=== PATIENT | female | born 1985 | race Caucasian/White ===

== ENCOUNTER 2018-04-22 23:43 | Emergency (ER) | payer BC, OTHER ==
[2018-04-23 00:50] LABS: Absolute Lymphocytes (CBC) 2.6 K/uL (0.7-4.9); Absolute Monocytes 0.6 K/uL (0.1-1.3); Absolute Neutrophil 3.9 K/uL (1.8-8.0); Basophils % 0.6 % (0-1.3); Eosinophils % 2.6 % (0-4.4); Lymphocytes % 35.3 % (15.3-44.8); MPV 8.8 fL (7.6-11.3); Monocytes % 8.1 % (3.3-12.3); RBC Red Blood Cell Count 4.28 M/uL (3.86-4.86)
[2018-04-23 00:53] LABS: Specific Gravity >= 1.030 (1.005-1.030); Urine Appearance TURBID; Urine Bilirubin NEGATIVE (NEG); Urine Blood 1+ (NEG); Urine Color YELLOW; Urine Glucose NEGATIVE (NEG); Urine Protein 1+ (NEG); Urine Specific Gravity >=1.030 (1.005-1.030); Urine pH 5.5 (5.0-7.0)
[2018-04-23] MEDS ORDERED: NA CHLORIDE 0.9% 1,000 ML ONE (00:54)
[2018-04-23] MEDS ORDERED: PROMETHAZINE 25 MG/ML VIAL ONE (00:54)
[2018-04-23 01:01] LABS: Calcium Oxalate Crystals- Ur MODERATE (NONE SEEN); Urine Bacteria >50 /HPF (<20); Urine Culture Reflex Order NOT NEEDED; Urine Mucus HEAVY /HPF (NONE SEEN)
[2018-04-23 01:02] LABS: Urine Trichomonas PRESENT (NONE SEEN)
[2018-04-23 01:07] LABS: ALT/SGPT 19 U/L (12-78); AST/SGOT 10 U/L (15-37); Albumin 3.3 g/dL (3.4-5.0); Alkaline Phosphatase 66 U/L (45-117); BUN Blood Urea Nitrogen 12 mg/dL (7-18); Bicarbonate 26 mmol/L (21-32); Bilirubin Direct < 0.1 mg/dL (0-0.2); Bilirubin Total 0.2 mg/dL (0.2-1.0); Glucose Level 113 mg/dL (74-106); Lipase 143 U/L (73-393); Potassium 3.8 mmol/L (3.5-5.1); Protein, Total 6.7 g/dL (6.4-8.2); Sodium Level 143 mmol/L (136-145)
[2018-04-23] MEDS ORDERED: metroNIDAZOLE 500 MG TABLET ONE (01:22)
--- NOTE | 2018-04-23 02:50 | EDPHYS ---
Physician Documentation [facility] Name: Lissa Zavala Age: 32 yrs Sex: Female : 1985 Arrival Date: 04/22/2018 Time: 23:45 Bed 13 Private MD: ED Physician Ryder Cali HPI: 04/23 00:30 This 32 yrs old Female presents to ER via Ambulatory with complaints of snw Vomiting. 00:30 The patient presents to the emergency department with nausea, vomiting, abdominal pain. snw Onset: The symptoms/episode began/occurred suddenly, 4 day(s) ago, and became persistent. Possible causes: unknown. The symptoms are aggravated by nothing. Associated signs and symptoms: Pertinent positives: nausea, vomiting. Severity of symptoms: At their worst the symptoms were moderate. The patient has experienced similar episodes in the past. The patient has not recently seen a physician, and does not have an established primary care provider. FACETOR: 04/22 23:51 LMP 03/30/2018 jb4 Historical: - Allergies: 23:51 No Known Allergies; jb4 - Home Meds: 23:51 None [Active]; jb4 - PMHx: 23:51 hietal hernia; hepatic cyst; Kidney stones; jb4 - PSHx: 23:51 ; Cholecystectomy; jb4 - Immunization history:: Adult Immunizations unknown, Flu vaccine is not up to date. - Social history:: Smoking status: Patient/guardian denies using tobacco, Patient/guardian denies using alcohol. - Ebola Screening: : No symptoms or risks identified at this time. ROS: 04/23 00:29 Constitutional: Negative for fever, chills, and weight loss, Eyes: Negative for injury, snw pain, redness, and discharge, ENT: Negative for injury, pain, and discharge, Neck: Negative for injury, pain, and swelling, Cardiovascular: Negative for chest pain, palpitations, and edema, Respiratory: Negative for shortness of breath, cough, wheezing, and pleuritic chest pain, Back: Negative for injury and pain, : Negative for injury, bleeding, discharge, and swelling, MS/Extremity: Negative for injury and deformity, Skin: Negative for injury, rash, and discoloration, Neuro: Negative for headache, weakness, numbness, tingling, and seizure. Abdomen/GI: Positive for abdominal pain, nausea, vomiting, of the posterior aspect of left lateral abdomen, left upper quadrant and left lower quadrant. Exam: 00:29 Constitutional: This is a well developed, well nourished patient who is awake, alert, snw and in no acute distress. Head/Face: Normocephalic, atraumatic. Eyes: Pupils equal round and reactive to light, extra-ocular motions intact. Lids and lashes normal. Conjunctiva and sclera are non-icteric and not injected. Cornea within normal limits. Periorbital areas with no swelling, redness, or edema. ENT: Nares patent. No nasal discharge, no septal abnormalities noted. Tympanic membranes are normal and external auditory canals are clear. Oropharynx with no redness, swelling, or masses, exudates, or evidence of obstruction, uvula midline. Mucous membranes moist. Neck: Trachea midline, no thyromegaly or masses palpated, and no cervical lymphadenopathy. Supple, full range of motion without nuchal rigidity, or vertebral point tenderness. No Meningismus. Chest/axilla: Normal chest wall appearance and motion. Nontender with no deformity. No lesions are appreciated. Cardiovascular: Regular rate and rhythm with a normal S1 and S2. No gallops, murmurs, or rubs. Normal PMI, no JVD. No pulse deficits. Respiratory: Lungs have equal breath sounds bilaterally, clear to auscultation and percussion. No rales, rhonchi or wheezes noted. No increased work of breathing, no retractions or nasal flaring. Abdomen/GI: Soft, non-tender, with normal bowel sounds. No distension or tympany. No guarding or rebound. No evidence of tenderness throughout. Back: No spinal tenderness. No costovertebral tenderness. Full range of motion. Skin: Warm, dry with normal turgor. Normal color with no rashes, no lesions, and no evidence of cellulitis. MS/ Extremity: Pulses equal, no cyanosis. Neurovascular intact. Full, normal range of motion. Neuro: Awake and alert, GCS 15, oriented to person, place, time, and situation. Cranial nerves II-XII grossly intact. Motor strength 5/5 in all extremities. Sensory grossly intact. Cerebellar exam normal. Normal gait. Psych: Awake, alert, with orientation to person, place and time. Behavior, mood, and affect are within normal limits. Vital Signs: 04/22 23:51 BP 114 / 79; Pulse 79; Resp 18; Temp 98.0(O); Pulse Ox 100% on R/A; Weight 81.65 kg jb4 (R); Height 5 ft. 7 in. (170.18 cm) (R); Pain 8/10; 04/23 00:45 BP 109 / 74; Pulse 63; Resp 16; Pulse Ox 100% on R/A; jb4 02:00 Pulse 54; Resp 16; Pulse Ox 100% ; jb4 04/22 23:51 Body Mass Index 28.19 (81.65 kg, 170.18 cm) jb4 MDM: 04/22 23:55 Patient medically screened. snw 04/23 02:51 Data reviewed: vital signs, nurses notes. Data interpreted: Pulse oximetry: on room air snw is 100 %. Interpretation: normal. Counseling: I had a detailed discussion with the patient and/or guardian regarding: the historical points, exam findings, and any diagnostic results supporting the discharge/admit diagnosis, lab results, radiology results, the need for outpatient follow up, to return to the emergency department if symptoms worsen or persist or if there are any questions or concerns that arise at home. Special discussion: Based on the patient's Hx, exam, and Dx evaluation, there is no indication for emergent surgery or inpatient Tx. It is understood by the patient/guardian that if the Sx's persist or worsen they need to return immediately for re-evaluation. Based on the history and exam findings, there is no indication for further emergent testing or inpatient evaluation. I discussed with the patient/guardian the need to see the OB Gyne specialist for further evaluation of the symptoms. I discussed with the patient/guardian the need to see the primary care provider for further evaluation of the symptoms. 04/23 00:20 Order name: Urine Culture snw 04/23 00:20 Order name: Basic Metabolic Panel; Complete Time: 01:07 snw 04/23 00:20 Order name: CBC with Diff; Complete Time: 00:59 snw 04/23 00:20 Order name: Hepatic Function; Complete Time: 01: snw 04/23 00:20 Order name: Lipase; Complete Time: 01: snw 04/23 00:20 Order name: Urine Test (obtain specimen); Complete Time: 01: [facility] 04/23 00:20 Order name: Stone Protocol CT [facility] 04/23 00:48 Order name: Test, Urine; Complete Time: 01: [facility] 04/23 00:48 Order name: Urinalysis W/Microscopic; Complete Time: 01: [facility] 04/23 00:20 Order name: Urine Dipstick-Ancillary (obtain specimen); Complete Time: 01: [facility] 04/23 00:20 Order name: IV Saline Lock; Complete Time: : [facility] 04/23 00:20 Order name: Labs collected and sent; Complete Time: : sn Administered Medications: 00:45 Drug: NS 0.9% 1000 ml Route: IV; Rate: 1 bolus; Site: right antecubital; jb4 03:10 Follow up: Response: No adverse reaction; IV Status: Completed infusion jb4 00:47 Drug: Phenergan 12.5 mg Route: IVP; Site: right antecubital; jb4 01:30 Follow up: Response: No adverse reaction; Nausea is decreased jb4 01:12 Drug: Flagyl 2 grams Route: PO; jb4 03:23 Follow up: Response: No adverse reaction jb4 Disposition: 06:39 Co-signature as Attending Physician, Ryder Cali MD. rn Disposition: 04/23/18 02:50 Discharged to Home. Impression: Trichomonal cystitis and urethritis, Unspecified abdominal pain, Calculus of kidney. - Condition is Stable. - Discharge Instructions: Abdominal Pain, Adult, Kidney Stones, Sexually Transmitted Disease, Urethritis, Adult. - Prescriptions for Bentyl 20 mg Oral Tablet - take 1 tablet by ORAL route every 6 hours As needed; 20 tablet. Zofran 4 mg Oral Tablet - take 1 tablet by ORAL route every 12 hours As needed; 20 tablet. - Medication Reconciliation Form, Thank You Letter, Antibiotic Education, Prescription Opioid Use form. - Follow up: Private Physician; When: 1 - 2 days; Reason: Recheck today's complaints, Continuance of care, Re-evaluation by your physician. Follow up: Emergency Department; When: As needed; Reason: Worsening of condition. Signatures: Dispatcher [facility] Kacie Miguel, SELLING MANAGER-C SELLING MANAGER-Csnw Ryder Cali MD MD rn Bryson, James, RN RN jb4 Corrections: (The following items were deleted from the chart) 00:48 00:21 UA MICROSCOPIC+U.LAB.BRZ ordered. [facility] EDMS 02:39 00:21 TYPE AND SCREEN+BB.LAB.BRZ ordered. [facility] EDMS 03:32 02:50 04/23/2018 02:50 Discharged to Home. Impression: Trichomonal cystitis and jb4 urethritis; Unspecified abdominal pain; Calculus of kidney. Condition is Stable. Forms are Medication Reconciliation Form, Thank You Letter, Antibiotic Education, Prescription Opioid Use. Follow up: Private Physician; When: 1 - 2 days; Reason: Recheck today's complaints, Continuance of care, Re-evaluation by your physician. Follow up: Emergency Department; When: As needed; Reason: Worsening of condition. snw
--- NOTE | 2018-04-23 02:50 | ER ---
Nurse's Notes [facility] Name: Lissa Zavala Age: 32 yrs Sex: Female : 1985 Arrival Date: 04/22/2018 Time: 23:45 Bed 13 Private MD: Diagnosis: Trichomonal cystitis and urethritis;Unspecified abdominal pain;Calculus of kidney Presentation: 04/22 23:51 Presenting complaint: Patient states: I have had abdominal pain that radiates to my jb4 back for the past 4 days and vomiting. 23:51 Transition of care: patient was not received from another setting of care. Onset of jb4 symptoms was April 19, 2018. Risk Assessment: Do you want to hurt yourself or someone else? Patient reports no desire to harm self or others. Initial Sepsis Screen: Does the patient meet any 2 criteria? No. Patient's initial sepsis screen is negative. Does the patient have a suspected source of infection? No. Patient's initial sepsis screen is negative. Care prior to arrival: None. 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 - Social history:: Smoking status: Patient/guardian denies using tobacco, Patient/guardian denies using alcohol. - Ebola Screening: : No symptoms or risks identified at this time. Screenin:51 Abuse screen: Denies threats or abuse. Nutritional screening: No deficits noted. jb4 Tuberculosis screening: No symptoms or risk factors identified. Fall Risk None identified. Assessment: 23:51 General: Appears in no apparent distress. uncomfortable, Behavior is calm, cooperative, jb4 appropriate for age. Pain: Complains of pain in abdomen Pain radiates to back Pain currently is 8 out of 10 on a pain scale. Quality of pain is described as stabbing, Pain began 4 days ago. Neuro: Level of Consciousness is awake, alert, obeys commands, Oriented to person, place, time, situation. Cardiovascular: Patient's skin is warm and dry. Respiratory: Airway is patent Respiratory effort is even, unlabored, Respiratory pattern is regular, symmetrical. GI: Abdomen is flat, non-distended, Bowel sounds present X 4 quads. Abd is soft X 4 quads Abd is non tender in right upper quadrant and right lower quadrant Abdomen is tender to palpation in left upper quadrant and left lower quadrant Reports lower abdominal pain, upper abdominal pain, diarrhea, nausea. : No signs and/or symptoms were reported regarding the genitourinary system. EENT: No signs and/or symptoms were reported regarding the EENT system. Derm: Skin is intact, Skin is pink, warm \T\ dry. Musculoskeletal: Circulation, motion, and sensation intact. 04/23 00:57 Reassessment: Patient appears in no apparent distress at this time. Patient and/or jb4 family updated on plan of care and expected duration. Pain level reassessed. Patient is alert, oriented x 3, equal unlabored respirations, skin warm/dry/pink. 02:00 Reassessment: Patient appears in no apparent distress at this time. Patient and/or jb4 family updated on plan of care and expected duration. Pain level reassessed. Patient is alert, oriented x 3, equal unlabored respirations, skin warm/dry/pink. Vital Signs: 04/22 23:51 BP 114 / 79; Pulse 79; Resp 18; Temp 98.0(O); Pulse Ox 100% on R/A; Weight 81.65 kg jb4 (R); Height 5 ft. 7 in. (170.18 cm) (R); Pain 8/10; 04/23 00:45 BP 109 / 74; Pulse 63; Resp 16; Pulse Ox 100% on R/A; jb4 02:00 Pulse 54; Resp 16; Pulse Ox 100% ; jb4 04/22 23:51 Body Mass Index 28.19 (81.65 kg, 170.18 cm) banner ED Course: 04/22 23:45 Patient arrived in ED. es 23:51 Arm band placed on right wrist. jb4 23:51 Patient has correct armband on for positive identification. Placed in gown. Bed in low jb4 position. Call light in reach. Side rails up X 1. Pulse ox on. NIBP on. 23:55 Kacie Miguel FNP-C is PHCP. snw 23:55 Ryder Cali MD is Attending Physician. snw 04/23 00:15 Vince Vazquez, RN is Primary Nurse. jb4 00:16 Triage completed. jb4 00:30 Initial lab(s) drawn, by me, sent to lab. Inserted saline lock: 20 gauge in right jb4 antecubital area, using aseptic technique. Blood collected. 01:[address] via wheelchair. kw1 01:30 CT completed. Patient tolerated procedure well. Patient moved back from CT. kw1 01:[address] In Process Unspecified. EDMS 03:25 No provider procedures requiring assistance completed. IV discontinued, intact, jb4 bleeding controlled. Administered Medications: 00:45 Drug: NS 0.9% 1000 ml Route: IV; Rate: 1 bolus; Site: right antecubital; jb4 03:10 Follow up: Response: No adverse reaction; IV Status: Completed infusion jb4 00:47 Drug: Phenergan 12.5 mg Route: IVP; Site: right antecubital; jb4 01:30 Follow up: Response: No adverse reaction; Nausea is decreased jb4 01:12 Drug: Flagyl 2 grams Route: PO; jb4 03:23 Follow up: Response: No adverse reaction jb4 Outcome: 02:50 Discharge ordered by . snw 03:25 Discharged to home ambulatory, with family. jb4 03:25 Condition: stable 03:25 Discharge instructions given to patient, family, Instructed on discharge instructions, follow up and referral plans. medication usage, Demonstrated understanding of instructions, follow-up care, medications, Prescriptions given X 2. 03:32 Patient left the ED. jb4 Signatures: Dispatcher [employer] EDAR Kacie Miguel FNP-C ATHLETE MANAGER-Csnw Charlene Hunter James, RN RN jb4 Gertrudis Donovan kw1
--- NOTE | 2018-04-23 11:55 | RAD REPORT ---
EXAM DESCRIPTION: CT abdomen pelvis without IV contrast CLINICAL HISTORY: 32-year-old female with abdominal pain that radiates the patient's back x4 days, v omiting, history of hiatal hernia TECHNIQUE: Axial CT imaging of the abdomen and pelvis was performed. Sagittal and coronal reconstr ucted images were then performed. The CT study is performed according to ALARA (as low as reasonably achievable) or ALARA/IMAGE GENTLY, with automatic adjustment of mA and/or kV according to patient amaury goldstein. Performed on: 04/23/2018 at 1:27 AM Comparison: None. FINDINGS: Lung bases: The lung bases are clear. There is a calcified granuloma in the posterior medi al right lower lobe. Liver: The liver is normal in size and configuration. No focal hepatic abnormalities are appreciated on this unenhanced scan. Liver attenuation is within normal limits. Spleen: The spleen is normal is size, configuration and attenuation. No focal splenic abnormalities a re appreciated on this unenhanced scan. Gallbladder and bile duct: The gallbladder is surgically absent. There is no biliary ductal dilatat ion. Pancreas: The pancreas is grossly normal in size and configuration. Adrenal Glands: The adrenal glands are normal in size and configuration. Kidneys: The kidneys are normal in size and configuration. There is no evidence of hydronephrosis. Th ere is a 0.7 x 0.5 x 0.9 cm nonobstructing calcification in the midpole of the left kidney. No focal renal abnormalities are identified. Stomach: The stomach is grossly normal. There is no definite hiatal hernia. Bowel: The bowel gas pattern is non specific and non obstructive. There is a small fat-containing frank tral umbilical hernia. Appendix: The appendix is normal. Free air: There is no evidence of free air. Free fluid: There is no evidence of free fluid. Vasculature: The aorta is normal in caliber and contour. The inferior vena cava is grossly unremarkab le. Lymphadenopathy: No pathologic lymphadenopathy is identified. Bladder: The bladder is incompletely distended. Reproductive: The uterus is grossly within normal limits. Bones: No acute osseous abnormalities are identified. Soft tissues: No focal soft tissue abnormalities are identified. There are multiple calcified pelvic phleboliths. IMPRESSION: 1. No evidence of acute intra-abdominal or intrapelvic pathology. 2. There is a 0.7 x 0.5 x 0.9 cm nonobstructing calcification in the midpole of the left kidney. 3. Right lower lobe calcified granuloma. 4. Small fat-containing ventral umbilical hernia. 5. Remote cholecystectomy. Electronically signed by: Niru Mccoy DO 04/23/2018 2:40 AM FLUTE TEACHER Due to temporary technical issues with the PACS/Fluency reporting system, reports are being signed by the in house radiologist as a courtesy to ensure prompt reporting. The interpreting radiologist is f ully responsible for the content of the report.
== END 2018-04-23 03:32 | disposition home or self-care (01) ==
LOC: ER 23:43
DX: N20.0 Calculus of kidney (principal); A59.03 Trichomonal cystitis and urethritis; Z87.442 Personal history of urinary calculi
CPT/HCPCS: 36415; 74176; 76377; 80048; 80076; 81001; 81025; 83690; 85025; 87086; 87088; 96361; 96374; 99284; J2550; J7030

== ENCOUNTER 2018-11-23 19:17 | Emergency (ER) | payer SELFPAY ==
[2018-11-23 19:55] LABS: Urine Blood 1+ (NEG); Urine Glucose NEGATIVE (NEG); Urine Protein 2+ (NEG)
[2018-11-23 20:05] LABS: Urine Bacteria >50 /HPF (<20); Urine Culture Reflex Order REFLEXED; Urine RBC <5 /HPF (NONE SEEN)
[2018-11-23 20:13] LABS: Absolute Lymphocytes (CBC) 1.9 K/uL (0.7-4.9); Basophils % 0.6 % (0-1.3); Hematocrit 32.3 % (36.0-45.0); Lymphocytes % 17.3 % (15.3-44.8); MPV 8.1 fL (7.6-11.3)
[2018-11-23] MEDS ORDERED: KETOROLAC 30 MG/ML INJ ONE (20:13)
[2018-11-23] MEDS ORDERED: NA CHLORIDE 0.9% 1,000 ML ONE (20:13)
[2018-11-23 20:28] LABS: Potassium 3.2 mmol/L (3.5-5.1)
--- NOTE | 2018-11-23 20:31 | RAD REPORT ---
EXAM DESCRIPTION: CT - Abdomen Pelvis Wo Contrast - 11/23/2018 8:09 pm CLINICAL HISTORY: ABD PAIN COMPARISON: Stone Protocol dated 04/23/2018 TECHNIQUE: Axial [address] imaging of the abdomen and pelvis was performed without IV contrast. No IV contrast was given because of allergy, abnormal renal function, patient refusal or physician re quest. No oral contrast given. All CT scans are performed using dose optimization technique as appropriate and may include automated exposure control or mA/KV adjustment according to patient size. FINDINGS: No suspicious findings in the lung bases. The liver, spleen and pancreas show no suspicious findings on non-contrast imaging. Cholecystectomy c lips are present. No biliary tree dilatation. No hydronephrosis or obstructing calculi. Nonobstructing calculus 7 mm in size in the mid left kidney . No significant adrenal finding. Isodense renal masses and pyelonephritis cannot be excluded in the absence of IV contrast. Urinary bladder is contracted accentuating wall thickness. Uterus and ovaries show no suspicious findings. No dilated bowel loops or bowel wall thickening. No appendicitis. Hyperdense material in the colon pr obably medication. No free air, free fluid or inflammatory stranding. No hernia, mass or bulky lympha denopathy. Numerous phleboliths are present in the pelvis. No suspicious bony findings. IMPRESSION: Non-contrast enhanced CT abdomen and pelvis imaging show no significant or suspicious fi nding. Isodense masses, pyelonephritis and cystitis are not excluded on noncontrast imaging. Overall assessm ent is limited in the absence of oral and IV contrast.
--- NOTE | 2018-11-23 21:11 | ER ---
Nurse's Notes [facility] Name: Lissa Zavala Age: 33 yrs Sex: Female : 1985 Arrival Date: 11/23/2018 Time: 19:22 Bed 7 Private MD: Diagnosis: Urinary tract infection, site not specified Presentation: 11/23 19:36 Presenting complaint: Patient states: General abdominal pain, headache, nausea x 2 lp1 days; States last BM 2 days ago. Transition of care: patient was not received from another setting of care. Onset of symptoms was November 21, 2018. Risk Assessment: Do you want to hurt yourself or someone else? Patient reports no desire to harm self or others. Initial Sepsis Screen: Does the patient meet any 2 criteria? No. Patient's initial sepsis screen is negative. Does the patient have a suspected source of infection? No. Patient's initial sepsis screen is negative. Care prior to arrival: None. 19:36 Method Of Arrival: Ambulatory lp1 19:36 Acuity: ROSLYN 3 lp1 MARINE SUPERINTENDENT: 19:37 LMP 11/16/2018 lp1 Historical: - Allergies: 19:39 No Known Allergies; lp1 - Home Meds: 19:39 None [Active]; lp1 - PMHx: 19:39 hepatic cyst; hietal hernia; Kidney stones; lp1 - PSHx: 19:39 Cholecystectomy; lp1 - Immunization history:: Adult Immunizations up to date. - Social history:: Smoking status: Patient uses tobacco products, smokes one pack cigarettes per day. - Ebola Screening: : No symptoms or risks identified at this time. Screenin:39 Abuse screen: Denies threats or abuse. Denies injuries from another. Nutritional lp1 screening: No deficits noted. Tuberculosis screening: No symptoms or risk factors identified. Fall Risk None identified. Assessment: 19:39 General: Appears in no apparent distress. Behavior is appropriate for age. Pain: lp1 Complains of pain in abdomen Pain currently is 7 out of 10 on a pain scale. Quality of pain is described as sharp. Neuro: Level of Consciousness is awake, alert, obeys commands, Oriented to person, place, time, situation. Cardiovascular: Patient's skin is warm and dry. Respiratory: Respiratory effort is even, unlabored. GI: Abdomen is non-distended, Bowel sounds present X 4 quads. Abdomen is tender to palpation X 4 quads. Reports constipation, nausea. : No signs and/or symptoms were reported regarding the genitourinary system. EENT: No signs and/or symptoms were reported regarding the EENT system. Derm: Skin is pink, warm \T\ dry. Musculoskeletal: No deficits noted. 20:17 Reassessment: Returned from CT at this time. lp1 21:45 Reassessment: Patient and/or family updated on plan of care and expected duration. Pain ea level reassessed. Patient is alert, oriented x 3, equal unlabored respirations, skin warm/dry/pink. Discharge instruction given to patient, verbalized the understanding of instruction. Pt left ED ambulatory accompanied by significant other. Vital Signs: 19:37 BP 119 / 68; Pulse 99; Resp 16; Temp 99.3(O); Pulse Ox 99% on R/A; Weight 81.65 kg; lp1 Height 5 ft. 7 in. (170.18 cm); Pain 7/10; 21:21 BP 113 / 71; Pulse 80; Resp 16; Pulse Ox 100% on R/A; Pain 2/10; lp1 19:37 Body Mass Index 28.19 (81.65 kg, 170.18 cm) lp1 ED Course: 19:22 Patient arrived in ED. cf2 19:30 Yasmani Scales MD is Attending Physician. gs 19:36 Leonora Grimaldo, BETHANY is Primary Nurse. lp1 19:37 Triage completed. lp1 19:38 Arm band placed on right wrist. lp1 19:39 Patient has correct armband on for positive identification. lp1 20:00 Inserted saline lock: 20 gauge in right antecubital area, using aseptic technique. lp1 Blood collected. 20:[address] vm2 20:09 CT Abd/Pelvis - Without Contrast In Process Unspecified. EDMS 21:21 No provider procedures requiring assistance completed. lp1 21:40 IV discontinued, intact, bleeding controlled, No redness/swelling at site. Pressure ea dressing applied. Administered Medications: 20:16 Drug: TORadol - Ketorolac 15 mg Route: IVP; Site: right antecubital; lp1 21:21 Follow up: Response: Pain is decreased lp1 20:17 Drug: NS 0.9% 1000 ml Route: IV; Rate: 1 bolus; Site: right antecubital; lp1 21:21 Follow up: IV Status: Completed infusion; IV Intake: 1000ml lp1 21:21 Drug: Rocephin - (cefTRIAXone) 1 grams Route: IVPB; Infused Over: 30 mins; Site: right lp1 antecubital; Intake: 21:21 IV: 1000ml; Total: 1000ml. lp1 Outcome: 21:10 Discharge ordered by . genesis 21:45 Discharged to home ambulatory, with significant other. lemuel 21:45 Condition: stable 21:45 Discharge instructions given to patient, Instructed on discharge instructions, follow up and referral plans. medication usage, Demonstrated understanding of instructions, follow-up care, medications, Prescriptions given X 1. 21:46 Patient left the ED. ea Signatures: Dispatcher [employer] EDMS Leonora Grimaldo, RN RN 1 Jud Serrano 2 Kendra Ponce RN RN ea Starr, Gregory, MD MD gs Frazier, Celesta 2
--- NOTE | 2018-11-23 21:12 | EDPHYS ---
Physician Documentation [facility] Name: Lissa Zavala Age: 33 yrs Sex: Female : 1985 Arrival Date: 11/23/2018 Time: 19:22 Bed 7 Private MD: ED Physician Yasmani Scales HPI: 11/23 21:06 This 33 yrs old Female presents to ER via Ambulatory with complaints of gs Abdominal Pain. 21:06 This 33 yrs old Female presents to ER via Ambulatory with complaints of gs Abdominal Pain. 21:06 The patient presents with abdominal pain in the lower abdomen. Onset: The gs symptoms/episode began/occurred 2 day(s) ago. The symptoms do not radiate. Associated signs and symptoms: Pertinent negatives: vomiting. The symptoms are described as crampy, sharp. Modifying factors: The symptoms are alleviated by nothing, the symptoms are aggravated by nothing. Severity of pain: At its worst the pain was severe in the emergency department the pain has improved mildly. The patient has experienced similar episodes in the past, a few times. 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 - Social history:: Smoking status: Patient uses tobacco products, smokes one pack cigarettes per day. - Ebola Screening: : No symptoms or risks identified at this time. ROS: 21:06 All other systems are negative. gs Exam: 21:06 Head/Face: Normocephalic, atraumatic. Eyes: Pupils equal round and reactive to light, gs extra-ocular motions intact. Lids and lashes normal. Conjunctiva and sclera are non-icteric and not injected. Cornea within normal limits. Periorbital areas with no swelling, redness, or edema. ENT: Nares patent. No nasal discharge, no septal abnormalities noted. Tympanic membranes are normal and external auditory canals are clear. Oropharynx with no redness, swelling, or masses, exudates, or evidence of obstruction, uvula midline. Mucous membranes moist. Neck: Trachea midline, no thyromegaly or masses palpated, and no cervical lymphadenopathy. Supple, full range of motion without nuchal rigidity, or vertebral point tenderness. No Meningismus. Chest/axilla: Normal chest wall appearance and motion. Nontender with no deformity. No lesions are appreciated. Cardiovascular: Regular rate and rhythm with a normal S1 and S2. No gallops, murmurs, or rubs. Normal PMI, no JVD. No pulse deficits. Respiratory: Lungs have equal breath sounds bilaterally, clear to auscultation and percussion. No rales, rhonchi or wheezes noted. No increased work of breathing, no retractions or nasal flaring. Back: No spinal tenderness. No costovertebral tenderness. Full range of motion. Skin: Warm, dry with normal turgor. Normal color with no rashes, no lesions, and no evidence of cellulitis. MS/ Extremity: Pulses equal, no cyanosis. Neurovascular intact. Full, normal range of motion. Neuro: Awake and alert, GCS 15, oriented to person, place, time, and situation. Cranial nerves II-XII grossly intact. Motor strength 5/5 in all extremities. Sensory grossly intact. Cerebellar exam normal. Normal gait. 21:06 Constitutional: The patient appears alert, awake. 21:06 Abdomen/GI: Palpation: moderate abdominal tenderness, in the suprapubic area and right lower quadrant, rebound tenderness, is not appreciated. Vital Signs: 19:37 BP 119 / 68; Pulse 99; Resp 16; Temp 99.3(O); Pulse Ox 99% on R/A; Weight 81.65 kg; lp1 Height 5 ft. 7 in. (170.18 cm); Pain 7/10; 21:21 BP 113 / 71; Pulse 80; Resp 16; Pulse Ox 100% on R/A; Pain 2/10; lp1 19:37 Body Mass Index 28.19 (81.65 kg, 170.18 cm) lp1 MDM: 19:52 Patient medically screened. gs 21:06 Differential diagnosis: appendicitis, bowel obstruction, urinary tract infection. Data gs reviewed: vital signs, nurses notes, lab test result(s), radiologic studies. Counseling: I had a detailed discussion with the patient and/or guardian regarding: the historical points, exam findings, and any diagnostic results supporting the discharge/admit diagnosis, the need for outpatient follow up. 11/23 19:39 Order name: Urine Microscopic Only; Complete Time: 21:03 11/23 19:50 Order name: Urine Dipstick--Ancillary (enter results); Complete Time: 19:56 [facility] 11/23 19:50 Order name: Urine --Ancillary (enter results); Complete Time: 19:56 [facility] 11/23 19:56 Order name: CBC with Diff; Complete Time: 21:03 11/23 19:56 Order name: Basic Metabolic Panel; Complete Time: 21:03 11/23 19:56 Order name: Lipase; Complete Time: 21:03 11/23 19:39 Order name: Urine Test (obtain specimen); Complete Time: 19:41 11/23 19:39 Order name: Urine Dipstick-Ancillary (obtain specimen); Complete Time: 19:41 11/23 19:56 Order name: CT Abd/Pelvis - Without Contrast; Complete Time: 21: 11/23 20:06 Order name: Urine Culture EDNC Administered Medications: 20:16 Drug: TORadol - Ketorolac 15 mg Route: IVP; Site: right antecubital; lp1 21:21 Follow up: Response: Pain is decreased lp1 20:17 Drug: NS 0.9% 1000 ml Route: IV; Rate: 1 bolus; Site: right antecubital; lp1 21:21 Follow up: IV Status: Completed infusion; IV Intake: 1000ml lp1 21:21 Drug: Rocephin - (cefTRIAXone) 1 grams Route: IVPB; Infused Over: 30 mins; Site: right lp1 antecubital; Disposition: 11/23/18 21:10 Discharged to Home. Impression: Urinary tract infection, site not specified. - Condition is Stable. - Discharge Instructions: Urinary Tract Infection, Adult. - Prescriptions for Keflex 500 mg Oral Capsule - take 1 capsule by ORAL route every 12 hours for 10 days; 20 capsule. - Medication Reconciliation Form, Thank You Letter, Antibiotic Education, Prescription Opioid Use form. - Follow up: Private Physician; When: 2 - 3 days; Reason: Re-evaluation by your physician. Signatures: [facility] Leonora Grimaldo RN RN 1 Kendra Ponce RN RN ea Starr, Gregory, MD MD Corrections: (The following items were deleted from the chart) 21:46 21:10 11/23/2018 21:10 Discharged to Home. Impression: Urinary tract infection, site ea not specified. Condition is Stable. Forms are Medication Reconciliation Form, Thank You Letter, Antibiotic Education, Prescription Opioid Use. Follow up: Private Physician; When: 2 - 3 days; Reason: Re-evaluation by your physician. gs
[2018-11-23] MEDS ORDERED: CEFTRIAXONE/SWI 1gm 1 GM/10 ML SYR ONE (21:17)
[2018-11-23 21:57] VITALS: TEMP 99.3
[2018-11-23 21:59] VITALS: BP 113/71; O2SAT 100
== END 2018-11-23 21:46 | disposition home or self-care (01) ==
LOC: ER 19:17
DX: N39.0 Urinary tract infection, site not specified (principal); F17.210 Nicotine dependence, cigarettes, uncomplicated
CPT/HCPCS: 36415; 74176; 80048; 81003; 81015; 81025; 83690; 85025; 87077; 87086; 87088; 87186; 96361; 96374; 96375; 99284; J0696; J7030

== ENCOUNTER 2019-02-15 21:37 | Emergency (ER) | payer SELFPAY ==
--- NOTE | 2019-02-15 22:04 | ER ---
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 Transition of care: patient was not received from another setting of care. Onset of symptoms was February 15, 2019. Risk Assessment: Do you want to hurt yourself or someone else? Patient reports no desire to harm self or others. Initial Sepsis Screen: Does the patient meet any 2 criteria? No. Patient's initial sepsis screen is negative. Does the patient have a suspected source of infection? No. Patient's initial sepsis screen is negative. Care prior to arrival: None. 21:52 Method Of Arrival: Ambulatory [facility] 21:52 Acuity: ROSLYN 4 [facility] Triage Assessment: 22:25 Bite description: animal information: vaccination(s). mg2 22:28 Bite description: bite sustained to right calf and left calf is superficial, by a dog. jd3 22:28 Bite description: by a dog. lp1 Historical: - Allergies: 21:55 No Known Allergies; mg2 - Home Meds: 21:55 None [Active]; mg2 - PMHx: 21:55 hepatic cyst; hietal hernia; Kidney stones; mg2 - PSHx: 21:55 None; mg2 - Immunization history:: Flu vaccine is not up to date. Last tetanus immunization: not immunized. - Social history:: Smoking status: Patient uses tobacco products, smokes one-half pack cigarettes per day, Patient/guardian denies using alcohol, street drugs, IV drugs. - Ebola Screening: : No symptoms or risks identified at this time. Screenin:20 Abuse screen: Denies threats or abuse. Denies injuries from another. Nutritional lp1 screening: No deficits noted. Tuberculosis screening: No symptoms or risk factors identified. Fall Risk None identified. Assessment: 22:14 Reassessment: Called police and said he will send someone to take report from the mg2 patient. he will be here in 5 minutes. 22:17 General: Appears in no apparent distress. Behavior is calm, cooperative, appropriate lp1 for age. Pain: Denies pain. Neuro: Level of Consciousness is awake, alert, obeys commands, Oriented to person, place, time, situation. Cardiovascular: Patient's skin is warm and dry. Respiratory: No deficits noted. GI: No deficits noted. : No deficits noted. EENT: No deficits noted. Derm: Skin is healthy with good turgor, Skin is dry, Skin is normal, Wound noted medial aspect of right calf and medial aspect of left calf Wound is Abrasions, no active bleeding. Musculoskeletal: No deficits noted. 22:33 Reassessment: Caden CORNEJO at bedside. lp1 22:42 Reassessment: Waiting for County officer for report from patient. lp1 Vital Signs: 21:55 BP 111 / 84; Pulse 101; Resp 18; Temp 98; Pulse Ox 100% on R/A; mg2 22:36 BP 131 / 88; Pulse 100; Resp 18; Pulse Ox 100% on R/A; lp1 ED Course: 21:41 Patient arrived in ED. cl3 21:44 Linnea May FNP-C is PHCP. kb 21:44 Yash Gallegos MD is Attending Physician. kb 21:54 Triage completed. mg2 21:55 Arm band placed on. mg2 22:01 Isael Carrasquillo, BETHANY is Primary Nurse. jd3 22:18 No provider procedures requiring assistance completed. Patient did not have IV access lp1 during this emergency room visit. Wound care: to abrasion, located on medial aspect of right calf and medial aspect of left calf was cleaned with Hibiclens, irrigated with normal saline. 22:28 Patient has correct armband on for positive identification. Bed in low position. Call jd3 light in reach. Side rails up X 1. Adult w/ patient. 23:10 Leonora Grimaldo, BETHANY is Primary Nurse. 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 Exp: jd3 08/02/2020. Lot #: [id number]. } Route: IM; Site: right deltoid; 22:35 Follow up: Response: No adverse reaction lp1 22:14 Drug: Augmentin Chewable Tablet 800 mg Route: PO; jd3 22:35 Follow up: Response: No adverse reaction lp1 Outcome: 22:04 Discharge ordered by . jimmie 22:34 Discharged to home ambulatory. lp1 22:34 Condition: good 22:34 Discharge instructions given to patient, Instructed on discharge instructions, follow up and referral plans. medication usage, Demonstrated understanding of instructions, follow-up care, medications, Prescriptions given X 1. 23:39 Patient left the ED. lp1 Signatures: Linnea May, MOLDED FRAMES ASSEMBLER-C MOLDED FRAMES ASSEMBLER-CkLeonora Anne RN RN lp1 Isael Carrasquillo RN RN jd3 Judah Valenzuela RN RN mg2 Ana Maria Thurman cl3
--- NOTE | 2019-02-15 22:04 | EDPHYS ---
Physician Documentation [facility] Name: Lissa Zavala Age: 33 yrs Sex: Female : 1985 Arrival Date: 02/15/2019 Time: 21:41 Bed 8 Private MD: ROWDY Physician Yash Gallegos HPI: 02/15 22:02 This 33 yrs old Female presents to ER via Ambulatory with complaints of Dog kb Bite. 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 Onset: The symptoms/episode began/occurred today, at 19:00. Animal information: Animal's vaccinations are up to date. Secondary to the bite the patient reports an abrasion, pain, a puncture wound, that is superficial. Associated signs and symptoms: Pertinent positives: pain at site. Severity of symptoms: At their worst the symptoms were mild, in the emergency department the symptoms are unchanged. The patient has not experienced similar symptoms in the past. The patient has not recently seen a physician. Historical: - Allergies: 21:55 No Known Allergies; mg2 - Home Meds: 21:55 None [Active]; mg2 - PMHx: 21:55 hepatic cyst; hietal hernia; Kidney stones; mg2 - PSHx: 21:55 None; mg2 - Immunization history:: Flu vaccine is not up to date. Last tetanus immunization: not immunized. - Social history:: Smoking status: Patient uses tobacco products, smokes one-half pack cigarettes per day, Patient/guardian denies using alcohol, street drugs, IV drugs. - Ebola Screening: : No symptoms or risks identified at this time. ROS: 21:59 Constitutional: Negative for fever, chills, and weight loss, ENT: Negative for injury, kb pain, and discharge, Neck: Negative for injury, pain, and swelling, Cardiovascular: Negative for chest pain, palpitations, and edema, Respiratory: Negative for shortness of breath, cough, wheezing, and pleuritic chest pain, Abdomen/GI: Negative for abdominal pain, nausea, vomiting, diarrhea, and constipation, Back: Negative for injury and pain, MS/Extremity: Negative for injury and deformity, Neuro: Negative for headache, weakness, numbness, tingling, and seizure. 21:59 Skin: Positive for abrasion(s), puncture, of the right calf and left calf. Exam: 21:59 Constitutional: This is a well developed, well nourished patient who is awake, alert, kb and in no acute distress. Head/Face: Normocephalic, atraumatic. ENT: Nares patent. No nasal discharge, no septal abnormalities noted. Tympanic membranes are normal and external auditory canals are clear. Oropharynx with no redness, swelling, or masses, exudates, or evidence of obstruction, uvula midline. Mucous membranes moist. Neck: Trachea midline, no thyromegaly or masses palpated, and no cervical lymphadenopathy. Supple, full range of motion without nuchal rigidity, or vertebral point tenderness. No Meningismus. Chest/axilla: Normal chest wall appearance and motion. Nontender with no deformity. No lesions are appreciated. Cardiovascular: Regular rate and rhythm with a normal S1 and S2. No gallops, murmurs, or rubs. Normal PMI, no JVD. No pulse deficits. Respiratory: Lungs have equal breath sounds bilaterally, clear to auscultation and percussion. No rales, rhonchi or wheezes noted. No increased work of breathing, no retractions or nasal flaring. Abdomen/GI: Soft, non-tender, with normal bowel sounds. No distension or tympany. No guarding or rebound. No evidence of tenderness throughout. MS/ Extremity: Pulses equal, no cyanosis. Neurovascular intact. Full, normal range of motion. Neuro: Awake and alert, GCS 15, oriented to person, place, time, and situation. Cranial nerves II-XII grossly intact. Motor strength 5/5 in all extremities. Sensory grossly intact. Cerebellar exam normal. Normal gait. 21:59 Skin: injury, bite(s), superficial, of the right calf and left calf. Vital Signs: 21:55 BP 111 / 84; Pulse 101; Resp 18; Temp 98; Pulse Ox 100% on R/A; mg2 22:36 BP 131 / 88; Pulse 100; Resp 18; Pulse Ox 100% on R/A; lp1 MDM: 21:54 Patient medically screened. [facility] 21:59 Data reviewed: vital signs, nurses notes. Data interpreted: Pulse oximetry: on room air kb is 100 %. Interpretation: normal. Counseling: I had a detailed discussion with the patient and/or guardian regarding: the historical points, exam findings, and any diagnostic results supporting the discharge/admit diagnosis, the need for outpatient follow up, a family practitioner, to return to the emergency department if symptoms worsen or persist or if there are any questions or concerns that arise at home. 02/15 22:01 Order name: Chloé. 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 Exp: jd3 08/02/2020. Lot #: [id number]. } Route: IM; Site: right deltoid; 22:35 Follow up: Response: No adverse reaction lp1 22:14 Drug: Augmentin Chewable Tablet 800 mg Route: PO; jd3 22:35 Follow up: Response: No adverse reaction lp1 Disposition: 02/16 15:21 Co-signature as Attending Physician, Yash Gallegos MD I agree with the assessment and dhruv plan of care. Disposition: 02/15/19 22:04 Discharged to Home. Impression: Bitten by dog. - Condition is Stable. - Discharge Instructions: Animal Bite, [id number]-Hicq. - Prescriptions for Augmentin 875- 125 mg Oral Tablet - take 1 tablet by ORAL route every 12 hours for 10 days; 20 tablet. - Medication Reconciliation Form, Thank You Letter, Antibiotic Education, Prescription Opioid Use form. - Follow up: Emergency Department; When: As needed; Reason: Worsening of condition. Follow up: Private Physician; When: 2 - 3 days; Reason: Recheck today's complaints, Continuance of care, Re-evaluation by your physician. Signatures: Linnea May, JEWELSMITH-C JEWELSMITH-Cristhianb Yash Gallegos MD MD cha Pena, Laura RN RN lp1 Isael Carrasquillo RN RN jd3 Judah Valenzuela RN RN mg2 Corrections: (The following items were deleted from the chart) 02/15 23:39 22:04 02/15/2019 22:04 Discharged to Home. Impression: Bitten by dog. Condition is lp1 Stable. Forms are Medication Reconciliation Form, Thank You Letter, Antibiotic Education, Prescription Opioid Use. Follow up: Emergency Department; When: As needed; Reason: Worsening of condition. Follow up: Private Physician; When: 2 - 3 days; Reason: Recheck today's complaints, Continuance of care, Re-evaluation by your physician. kb
[2019-02-15] MEDS ORDERED: AMOX TR/K CLAV 400MG CHEW TAB PO ONE (22:10)
[2019-02-15] MEDS ORDERED: TETANUS & DIPHTHERIA TOX,ADULT 0.5 ML VIAL ONE (22:10)
[2019-02-16 00:43] VITALS: TEMP 98; O2SAT 100
[2019-02-16 00:44] VITALS: BP 131/88
== END 2019-02-15 23:39 | disposition home or self-care (01) ==
LOC: ER 21:37
DX: S81.852A Open bite, left lower leg, initial encounter (principal); S81.851A Open bite, right lower leg, initial encounter; W54.0XXA Bitten by dog, initial encounter; Y93.89 Activity, other specified; Y92.89 Other specified places as the place of occurrence of the external cause; Y99.0 Civilian activity done for income or pay; F17.210 Nicotine dependence, cigarettes, uncomplicated; Z23 Encounter for immunization
CPT/HCPCS: 90471; 90714; 99284

== ENCOUNTER 2020-10-31 23:21 | Emergency (ER) | payer BC, SELFPAY ==
[2020-11-01] MEDS ORDERED: DIPHENHYDRAMINE 25 MG TAB/CAP ONE (01:18)
[2020-11-01] MEDS ORDERED: METHYLPREDNISOLONE 125 MG INJ ONE (01:18)
[2020-11-01] MEDS ORDERED: FAMOTIDINE 20 MG TAB ONE (01:18)
--- NOTE | 2020-11-01 01:33 | ER ---
Nurse's Notes [facility] Name: Lissa Esqueda Age: 35 yrs Sex: Female : 1985 Arrival Date: 10/31/2020 Time: 23:25 Bed Waiting Private MD: Diagnosis: Allergic contact dermatitis due to plants, except food Presentation: 11/01 00:08 Chief complaint: Patient states: Rash all over body. Pt stated, " I got into poison sasha kg or poison sumac about 2-3 days ago and none of the OTC meds are working.". Coronavirus screen: Vaccine status: Patient reports being unvaccinated. Client denies travel out of the [place] in the last 14 days. At this time, unable to obtain information related to travel outside the [place] At this time, the client does not indicate any symptoms associated with coronavirus-19. Ebola Screen: Patient negative for fever greater than or equal to 101.5 degrees Fahrenheit, and additional compatible Ebola Virus Disease symptoms Patient denies exposure to infectious person. Patient denies travel to an Ebola-affected area in the 21 days before illness onset. Initial Sepsis Screen: Does the patient meet any 2 criteria? No. Patient's initial sepsis screen is negative. Does the patient have a suspected source of infection? No. Patient's initial sepsis screen is negative. Initial Sepsis Screen: Does the patient have a suspected source of infection?. Risk Assessment: Do you want to hurt yourself or someone else? Patient reports no desire to harm self or others. Onset of symptoms was October 28, 2020. 00:08 Method Of Arrival: Ambulatory kg 00:08 Acuity: ROSLYN 4 kg Triage Assessment: 00:11 General: Appears in no apparent distress. Behavior is calm, cooperative, appropriate kg for age, quiet. Pain: Complains of pain in Generalized. Derm: Rash noted that is itchy, papular, raised, vesicular. 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 - Social history:: Smoking status: Patient reports the use of cigarette tobacco products, smokes one pack cigarettes per day. Patient uses alcohol, occasionally. Screenin:12 Abuse screen: Denies threats or abuse. Denies injuries from another. Nutritional kg screening: No deficits noted. Tuberculosis screening: No symptoms or risk factors identified. Fall Risk None identified. Assessment: 01:42 Derm: Rash noted that is itchy, red, raised, vesicular. kg Vital Signs: 00:08 BP 119 / 76; Pulse 91; Resp 20; Temp 98.2(O); Pulse Ox 100% on R/A; Weight 81.65 kg kg (R); Height 5 ft. 7 in. (170.18 cm) (R); Pain 8/10; 01:42 BP 106 / 74; Pulse 64; Resp 20; Pulse Ox 100% on R/A; kg 00:08 Body Mass Index 28.19 (81.65 kg, 170.18 cm) kg ED Course: 10/31 23:25 Patient arrived in ED. bp1 09 00:11 Triage completed. kg 00:12 Patient has correct armband on for positive identification. kg 00:48 Larry Phillips MD is Attending Physician. 7 01:42 No provider procedures requiring assistance completed. Patient did not have IV access kg during this emergency room visit. Administered Medications: 00:57 Drug: SOLU-Medrol (methylPREDNISolone sodium succinate) 125 mg Route: IM; Site: right kg gluteus; 01:43 Follow up: Response: No adverse reaction kg 01:01 Drug: Pepcid (famotidine) 20 mg Route: PO; kg 01:43 Follow up: Response: No adverse reaction kg 01:01 Drug: Benadryl (diphenhydrAMINE) 50 mg Route: PO; kg 01:43 Follow up: Response: No adverse reaction; Marked relief of symptoms kg Outcome: 01:32 Discharge ordered by . [email or web address] 01:42 Discharged to home ambulatory. kg 01:42 Condition: improved 01:42 Discharge instructions given to patient, Instructed on discharge instructions, follow up and referral plans. Demonstrated understanding of instructions, follow-up care, medications, Prescriptions given X 3. 01:43 Patient left the ED. kg Signatures: PaniaCora schultz Maurice, MD MD mh7 Nellie Oconnell, RN RN kg
--- NOTE | 2020-11-01 01:33 | EDPHYS ---
Physician Documentation [facility] Name: Lissa Esqueda Age: 35 yrs Sex: Female : 1985 Arrival Date: 10/31/2020 Time: 23:25 Bed Waiting Private MD: ROWDY Physician Larry Phillips HPI: 11/01 00:51 This 35 yrs old Female presents to ER via Ambulatory with complaints of Rash. mh7 00:51 The patient's rash thought to be caused by Dermatitis Contact allergy. The rash is mh7 located on the body diffusely. The rash can be described as macular, papular, patchy. Onset: The symptoms/episode began/occurred 2 day(s) ago. Associated signs and symptoms: Pertinent positives: itching, Pertinent negatives: burning sensation, difficulty breathing, fever, nausea, Pain swelling of lips, swelling of throat, swelling of tongue, vomiting, wheezing. Severity of symptoms: At their worst the symptoms were mild yesterday, in the emergency department the symptoms are unchanged. Treatment given at home: Benadryl, OTC lotion/cream. Patient states that her was cutting poison sumac and guided onto his clothing which she later had contact with. She reports itchy rash on her legs, back, chest, and abdominal area. She denies any fever, chest pain, shortness of breath, nausea, vomiting, throat swelling/facial swelling, dizziness, numbness/tingling, or weakness. She has tried taking low-dose Benadryl and topical [id number] lotion for itching.. 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 - Social history:: Smoking status: Patient reports the use of cigarette tobacco products, smokes one pack cigarettes per day. Patient uses alcohol, occasionally. ROS: 00:51 Constitutional: Negative for fever, chills, and weight loss, Eyes: Negative for injury, mh7 pain, redness, and discharge, ENT: Negative for injury, pain, and discharge, Neck: Negative for injury, pain, and swelling, Cardiovascular: Negative for chest pain, palpitations, and edema, Respiratory: Negative for shortness of breath, cough, wheezing, and pleuritic chest pain, Abdomen/GI: Negative for abdominal pain, nausea, vomiting, diarrhea, and constipation, Back: Negative for injury and pain, : Negative for injury, bleeding, discharge, and swelling, MS/Extremity: Negative for injury and deformity, Neuro: Negative for headache, weakness, numbness, tingling, and seizure, Psych: Negative for depression, anxiety, suicide ideation, homicidal ideation, and hallucinations, Endocrine: Negative for neck swelling, polydipsia, polyuria, polyphagia, and marked weight changes, Hematologic/Lymphatic: Negative for swollen nodes, abnormal bleeding, and unusual bruising. Exam: 00:51 Constitutional: This is a well developed, well nourished patient who is awake, alert, mh7 and in no acute distress. Head/Face: Normocephalic, atraumatic. Eyes: Pupils equal round and reactive to light, extra-ocular motions intact. Lids and lashes normal. Conjunctiva and sclera are non-icteric and not injected. Cornea within normal limits. Periorbital areas with no swelling, redness, or edema. ENT: Nares patent. No nasal discharge, no septal abnormalities noted. Tympanic membranes are normal and external auditory canals are clear. Oropharynx with no redness, swelling, or masses, exudates, or evidence of obstruction, uvula midline. Mucous membranes moist. Neck: Trachea midline, no thyromegaly or masses palpated, and no cervical lymphadenopathy. Supple, full range of motion without nuchal rigidity, or vertebral point tenderness. No Meningismus. Chest/axilla: Normal chest wall appearance and motion. Nontender with no deformity. No lesions are appreciated. Cardiovascular: Regular rate and rhythm with a normal S1 and S2. No gallops, murmurs, or rubs. Normal PMI, no JVD. No pulse deficits. Respiratory: Lungs have equal breath sounds bilaterally, clear to auscultation and percussion. No rales, rhonchi or wheezes noted. No increased work of breathing, no retractions or nasal flaring. Abdomen/GI: Soft, non-tender, with normal bowel sounds. No distension or tympany. No guarding or rebound. No evidence of tenderness throughout. Back: No spinal tenderness. No costovertebral tenderness. Full range of motion. MS/ Extremity: Pulses equal, no cyanosis. Neurovascular intact. Full, normal range of motion. Neuro: Awake and alert, GCS 15, oriented to person, place, time, and situation. Cranial nerves II-XII grossly intact. Motor strength 5/5 in all extremities. Sensory grossly intact. Cerebellar exam normal. Normal gait. Psych: Awake, alert, with orientation to person, place and time. Behavior, mood, and affect are within normal limits. 00:51 Skin: rash a mild rash is noted, rash can be described as macular, nonspecific, papular, No petechiae or purpura., on the back, abdomen, right leg and left leg. Vital Signs: 00:08 BP 119 / 76; Pulse 91; Resp 20; Temp 98.2(O); Pulse Ox 100% on R/A; Weight 81.65 kg kg (R); Height 5 ft. 7 in. (170.18 cm) (R); Pain 8/10; 01:42 BP 106 / 74; Pulse 64; Resp 20; Pulse Ox 100% on R/A; kg 00:08 Body Mass Index 28.19 (81.65 kg, 170.18 cm) kg MDM: 01:29 Differential diagnosis: impetigo, allergic reaction, Contact dermatitis, nonspecific mh7 rash. Data reviewed: vital signs, nurses notes, old medical records. Data interpreted: Pulse oximetry: on room air is 100 %. Interpretation: normal. 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 Response to treatment: the patient's symptoms have markedly improved after treatment. 01:32 Patient medically screened. mh7 Administered Medications: 00:57 Drug: SOLU-Medrol (methylPREDNISolone sodium succinate) 125 mg Route: IM; Site: right kg gluteus; 01:43 Follow up: Response: No adverse reaction kg 01:01 Drug: Pepcid (famotidine) 20 mg Route: PO; kg 01:43 Follow up: Response: No adverse reaction kg 01:01 Drug: Benadryl (diphenhydrAMINE) 50 mg Route: PO; kg 01:43 Follow up: Response: No adverse reaction; Marked relief of symptoms kg Disposition Summary: 11/01/20 01:32 Discharge Ordered Location: Home [facility] Problem: new [facility] Symptoms: have improved [facility] Condition: Stable [facility] Diagnosis - Allergic contact dermatitis due to plants, except food [facility] Followup: [facility] - With: Private Physician - When: 1 - 2 days - Reason: Worsening of condition, Recheck today's complaints, Continuance of care, Re-evaluation by your physician Discharge Instructions: - Discharge Summary Sheet [facility] - Contact Dermatitis [facility] - Rash, Adult, [id number] [facility] Forms: - Medication Reconciliation Form [facility] - Thank You Letter [facility] - Antibiotic Education [facility] - Prescription Opioid Use [facility] Prescriptions: - Benadryl 25 mg Oral Capsule - take 1 capsule by ORAL route every 6 hours As needed; 20 tablet; Refills: 0, [facility] Product Selection Permitted - Pepcid 20 mg Oral Tablet - take 1 tablet by ORAL route every 12 hours for 5 days; 10 tablet; Refills: 0, [facility] Product Selection Permitted - Prednisone 20 mg Oral Tablet - take 2 tablets by ORAL route once daily for 5 days; 10 tablet; Refills: 0, [facility] Product Selection Permitted Signatures: Larry Phillips MD MD [facility] Nellie Oconnell RN RN kg Corrections: (The following items were deleted from the chart) 01:33 01:32 Unspecified contact dermatitis due to plants, except food [place] [id number]
[2020-11-01 02:05] VITALS: TEMP 98.2; O2SAT 100
[2020-11-01 02:06] VITALS: BP 106/74
== END 2020-11-01 01:43 | disposition home or self-care (01) ==
LOC: ER 23:21
DX: L23.7 Allergic contact dermatitis due to plants, except food (principal); F17.210 Nicotine dependence, cigarettes, uncomplicated
CPT/HCPCS: 96372; 99283; J2930

== ENCOUNTER 2023-02-09 23:12 | Emergency (ER) | payer BC ==
--- OUTSIDE RECORDS SUMMARY | 2023-02-09 23:16 | XMS REPORT | Continuity of Care Document ---
Author Name Unknown Address [address] [facility] [address] [place] [address] [facility] Address [address] [facility]. 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 Name Role Phone Anuja Baez Primary Care Physician Alesia vailable VIRI SHEPARD Attending Clinician Unavailable Devyn SHOP LEADViri Attending Clinician [phone] KEIRA PATEL Attending Clinician Unavailable Quiana Rapp Attending Clinician [phone] QUIANA RENAE Attending Clinician Unavailable Doctor Unassigned, Trezevant Attending Clinician U navailable RADIOLOGY Attending Clinician Unavailable Radiology Attending Clinician Unavailable YVETTE ANSARI Attending Clinician Unavaila ble Elan ACNYvette Lemus Attending Clinician + [phone] EBENRIQUE RUANO Attending Clinician Unavailable Nurse, Anic[facility] Attending Clinician Un available [place] SHOP LEADEnrique Lemus Attending Clinician [phone] Migdalia FAIRCHILD, Alphonso Centeno Attending Clinician [phone] Odilon SIMS, Drea Zavala Attending Clinician Unavailab Danita Hair Fam Pob I Attending Clinician Unavailab Carol Lopez Attending Clinician [phone] Belen Levy Attending Clinician [phone] BELEN WEBER Attending Clinician Unavailable Meena SHOP LEAD, Gertrudis J Attending Clinician [phone] Pcp, Patient Does Not Have A Attending Clinician VIRI SHEPARD Admitting Clinician Unavailable BENITA MELENDREZ Admitting Clinician YVETTE Quiroz Admitting Clinician Jose odonnell Payers Payer Name Policy Type Policy Number Effective Date Expirati on Date Source [facility] [id number] 2020 00:00:00 [facility] [id number] 2022 00:00:00 Problems Condition Name Condition Details Condition Category Status Onset Date Resolution Date Last Treatment Date Treating Clinician Comments Source No known active problems No known active problems Disease [facility] Allergies, Adverse Reactions, Alerts Allergy Name Allergy Type Status Severity Reaction(s) Onset Date Inactive Date Treating Clinician Comments Source NO KNOWN ALLERGIE S Drug Class Active [facility] Social History Social Habit Start Date Stop Date Quantity Comments Source Sexual orientation U [facility] Exposure to SARS-CoV-2 (event) 2022-03-23 00:00:00 2022-04-02 17:02:00 Not sure [facility] History of Social function 2021-07-31 00:00:00 2021-07-31 00:00:00 [facility] Tobacco use and exposure 2021-03-12 00:00:00 2021-03-12 00:00:00 Smokeless tobacco non-user [facility] Sex Assigned At 1985 00:00:00 1985 00:00:00 Lana Contreras - External Smoking Status Start Date Stop Date Source Tobacco smoking consumption unknown Lana Contreras - Ext ernal Never smoked tobacco [facility] Medications Ordered Medication Name Filled Medication Name Start Date Stop Date Current Medication? Ordering Clinician Indication Dosage Frequency Signature (SIG) Comments Components Source dicyclomine (BENTYL) tablet 20 mg 04-03 02:41: 00 04-03 02:50 :00 No 20mg 20 mg, Oral, ONCE, 1 dose, On 04/02/22 at 2045, LUNA [facility] iopamidol (ISOVUE 370-500 mL) injection 83 mL 04-03 00:18: 00 04-03 00:30 :00 No [id number] 83mL 83 mL, Intravenou s, ONCE, 1 dose, On 04/02/22 at 1830, Routine [facility] NaCl 0.9% (NS) IV infusion 1,000 mL 04-02 23:35: 00 04-03 02:29 :00 No 1000mL at 999 mL/hr, Intravenou s, ONCE, 1 dose, [facility]02[facility]22 [facility]FRAN (PF[facility] 4 mg 04-02 23:31: 00 04-03 00:03 :00 No 4mg 4 mg, Slow IV Push, ONCE, 1 dose, On 04/02/22 at 1745, [facility] famotidine (PEPCID (PF)) injection 20 mg 04-02 23:31: 00 04-03 00:05 :00 No 20mg 20 mg, Slow IV Push, ONCE, 1 dose, On 04/02/22 at 1745, [facility] sodium chloride (NS) injection 5 mL 04-02 23:17: 45 Yes 5mL 5 mL, Intravenou s, PRN, Starting on 04/02/22 at 1717, Until Discontinu ed, Routine, IV line flushing [facility] ondansetron 4 mg disintegrat ing tablet 04-02 00:00: 00 Yes [id number] 4mg Take 1 tablet by mouth every 8 (eight) hours as needed for Nausea and Vomiting (N/V). [facility] dicyclomine 10 mg capsule 04-02 00:00: 00 Yes [id number] 10mg Take 1 capsule by mouth 3 (three) times daily as needed for Abdominal pain. [facility] pantoprazol e (PROTONIX) 40 mg EC tablet 04-02 00:00: 00 05-03 05:59 :00 No [id number] 40mg Take 1 tablet by mouth in the morning for 30 days. [facility] methylPREDN ISolone (Medrol) 4 MG oral Tablet Therapy Pack 03-02 00:00: 00 Yes [id number] 4105 1{krystal} Take 1 krystal by mouth See Admin Instructio ns Use as directed. Lana hernandez Meloxicam 7.5 MG oral Tablet 2021-02 2-30 00:00: 00 Yes 7.5mg Take 7.5 mg by mouth 2 times daily Lana Diane hernandez Omeprazole 40 MG oral Delayed Release Capsule 07-31 00:00: 00 Yes 40mg Take 40 mg by mouth daily Lana Rosaleslenka hernandez omeprazole 40 mg capsule 07-31 00:00: 00 Yes [id number] 40mg Take 1 capsule by mouth daily. [facility] ondansetron 4 mg disintegrat ing tablet 07-31 00:00: 00 Yes [id number] 4mg Take 1 tablet by mouth every 8 (eight) hours as needed for Nausea and Vomiting (N/V). [facility] omeprazole 40 mg capsule 07-31 00:00: 00 Yes [id number] 40mg Take 1 capsule by mouth daily. [facility] ondansetron 4 mg disintegrat ing tablet 07-31 00:00: 00 Yes [id number] 4mg Take 1 tablet by mouth every 8 (eight) hours as needed for Nausea and Vomiting (N/V). [facility] omeprazole 40 mg capsule 07-31 00:00: 00 Yes [id number] 40mg Take 1 capsule by mouth daily. [facility] ondansetron 4 mg disintegrat ing tablet 07-31 00:00: 00 Yes [id number] 4mg Take 1 tablet by mouth every 8 (eight) hours as needed for Nausea and Vomiting (N/V). [facility] Ondansetron (ZOFRAN) 4 MG oral TABLET DISPERSIBLE 07-31 00:00: 00 Yes 4mg [id number] 3D Take 4 mg by mouth every 8 hours as needed Lana hernandez iohexol (OMNIPAQUE 350 BULK-100 mL) injection 120 mL 03-13 02:45: 00 03-13 02:38 :00 No [id number] 120mL 120 mL, Intravenou s, ONCE, 1 dose, On Mon03/12/21 at 2044, Routine [facility] ketorolac (TORADOL) injection 15 mg 03-13 02:45: 00 03-13 02:12 :00 No 15mg 15 mg, Slow IV Push, ONCE, 1 dose, On Mon03/12/21 at 2044, Routine [facility] No known medications 03-12 19:41: 11 No [facility] No known medications 03-12 19:41: 11 No [facility] No known medications 03-12 19:41: 11 No [facility] No known medications 03-12 18:39: 12 No [facility] Vital Signs Vital Name Observation Time Observation Value Comments S ource Systolic blood pressure 2022-04-03 02:50:00 111 mm[Hg] [facility] Diastolic blood pressure 2022-04-03 02:50:00 68 mm[Hg] [facility] Heart rate 2022-04-03 02:50:00 91 /min [facility] Oxygen saturation in Arterial blood by Pulse oximetry 2022-04-03 02:50:00 97 /min [facility] Respiratory rate 2022-04-03 02:20:00 16 /min [facility] Body temperature 2022-04-02 23:05:00 37.5 Cherelle [facility] Body height 2022-04-02 23:05:00 170.2 cm [facility] Body weight 2022-04-02 23:05:00 99.791 kg [facility] BMI 2022-04-02 23:05:00 34.46 kg/m2 [facility] Systolic blood pressure 2022-03-02 15:53:00 126 mm[Hg] Lana Ruckero ld - External Diastolic blood pressure 2022-03-02 15:53:00 72 mm[Hg] Lana Ruckero ld - External Heart rate 2022-03-02 15:53:00 108 /min Troy y ybcarol - External Body temperature 2022-03-02 15:53:00 36.5 Cherelle Lana Rosalesybold - External Respiratory rate 2022-03-02 15:53:00 18 /min Lana Rosalesybold - External Body height 2022-03-02 15:53:00 172.7 cm Carol Ann rios Seybold - External Body weight 2022-03-02 15:53:00 101.152 kg Carol Ann ey Seybold - External BMI 2022-03-02 15:53:00 33.91 kg/m2 Carol Ann ey Seybold - External Systolic blood pressure 2021-07-31 17:17:00 120 mm[Hg] [facility] Diastolic blood pressure 2021-07-31 17:17:00 80 mm[Hg] [facility] Heart rate 2021-07-31 17:17:00 78 /min [facility] Body temperature 2021-07-31 17:17:00 36.78 Cherelle [facility] Respiratory rate 2021-07-31 17:17:00 14 /min [facility] Body height 2021-07-31 17:17:00 170.2 cm [facility] Body weight 2021-07-31 17:17:00 97.659 kg [facility] BMI 2021-07-31 17:17:00 33.72 kg/m2 [facility] Oxygen saturation in Arterial blood by Pulse oximetry 2021-07-31 17:17:00 98 /min [facility] Systolic blood pressure 2021-03-13 03:20:00 124 mm[Hg] [facility] Diastolic blood pressure 2021-03-13 03:20:00 68 mm[Hg] [facility] Heart rate 2021-03-13 03:20:00 75 /min Unive [facility] Respiratory rate 2021-03-13 03:20:00 15 /min [facility] Oxygen saturation in Arterial blood by Pulse oximetry 2021-03-13 03:20:00 100 /min [facility] Body temperature 2021-03-13 01:29:00 37.06 Cherelle [facility] Body height 2021-03-13 01:29:00 170.2 cm [facility] Body weight 2021-03-13 01:29:00 99.791 kg [facility] BMI 2021-03-13 01:29:00 34.46 kg/m2 [facility] Systolic blood pressure 2021-03-13 00:42:00 118 mm[Hg] [facility] Diastolic blood pressure 2021-03-13 00:42:00 82 mm[Hg] [facility] Heart rate 2021-03-13 00:42:00 106 /min [facility] Body temperature 2021-03-13 00:42:00 36.78 Cherelle [facility] Respiratory rate 2021-03-13 00:42:00 18 /min [facility] Body height 2021-03-13 00:42:00 170.2 cm [facility] Body weight 2021-03-13 00:42:00 99.791 kg [facility] BMI 2021-03-13 00:42:00 34.46 kg/m2 [facility] Oxygen saturation in Arterial blood by Pulse oximetry 2021-03-13 00:42:00 99 /min [facility] Procedures Procedure Date / Time Performed Performing Clinician Source CT ABDOMEN PELVIS W CONTRAST 2022-04-03 00:24:52 Viri Shepard [facility] POCT TEST 2022-04-03 00:02:00 Roxana Shepard [facility] LIPASE 2022-04-02 23:38:00 Viri Shepard [facility] COMP. METABOLIC PANEL (37511) 2022-04-02 23:38:00 Viri Shepard [facility] CBC WITH DIFF 2022-04-02 23:38:00 Viri Shepard [facility] URINALYSIS 2022-04-02 23:38:00 Devyn Vonnico Lillian [facility] CONSENT/REFUSAL FOR DIAGNOSIS AND TREATMENT 2022-04-02 22:50:12 Doctor Unassigned, Trezevant [facility] POCT URINALYSIS 2021-07-31 17:28:00 Quiana Renae [facility] POCT TEST 2021-07-31 17:27:00 Malini Renae [facility] ASSIGNMENT OF BENEFITS 2021-07-31 17:11:17 Docto r Unassigned, Trezevant [facility] US PELVIS COMPLETE WITH TRANSVAGINAL 2021-04-01 22:06:00 Requisition, Paper [facility] CT ABDOMEN PELVIS W CONTRAST 2021-03-13 02:44:04 [facility] LIPASE 2021-03-13 02:10:00 Yvette Ansari [facility] BASIC METABOLIC PANEL (NA, K, CL, CO2, GLUCOSE, BUN, CREATININE, CA) 2021-03-13 02:10:00 [facility] CBC WITH DIFF 2021-03-13 02:10:00 Elan [facility] URINALYSIS 2021-03-13 02:10:00 Yvette Ansari [facility] NOTICE OF PRIVACY PRACTICES 2021-03-13 01:24:22 Doctor Unassigned, Trezevant [facility] CONSENT/REFUSAL FOR DIAGNOSIS AND TREATMENT 2021-03-13 01:24:02 Doctor Unassigned, Trezevant [facility] Encounters Start Date/Time End Date/Time Encounter Type Admission Type Attending [facility] Care Department Encounter ID Source 2022-04-02 17:07:00 2022-04-02 21:02:00 Emergency X VIRI SHEPARD [facility] ERT [id number] [facility] 2022-04-02 17:07:00 2022-04-02 21:02:00 Emergency Sophiasoo Viri [facility] [id number] 350.1.13.10 4.2.7.2.686 [id number] [facility] 2022-03-02 10:00:00 2022-03-02 10:00:00 Outpatient KEIRA PATEL LANA ANTONIO [id number] [facility] 2022-03-02 09:40:00 2022-03-02 09:40:00 Outpatient LANA LANA [id number] [facility] 2022-03-01 00:00:00 2022-03-01 00:00:00 Outpatient JORGE KEIRA ANTONIO [id number] [facility] 2021-07-31 12:20:00 2021-07-31 12:40:00 Urgent Care Oc [facility]?PANTERAAleksandar [facility] MEDICAL OFFICE BUILDING [id number] 350.1.13.10 4.2.7.2.686 [id number] [facility] 2021-07-31 12:20:00 2021-07-31 12:20:00 [id number] 2021-07-31 00:00:00 2021-07-31 00:00:00 Orders Only Doctor Unassigned, Trezevant [facility] [id number] 350.1.13.10 4.2.7.2.686 [id number] [facility] 2021-07-31 00:00:00 2021-07-31 00:00:00 Refill Oc [facility]?PANTERAAleksandar [facility] MEDICAL OFFICE BUILDING 1.2.840.114 350.1.13.10 4.2.7.2.686 [id number] [facility] 2021-04-24 16:15:00 2021-04-24 16:15:00 Outpatient R [facility] [id number] [facility] 2021-04-01 15:21:17 2021-04-01 23:59:00 Outpatient R RADIOLOGY [facility] [id number] [facility] 2021-04-01 15:00:00 2021-04-01 23:59:00 Hospital Encounter Radiology [facility] 1.2840.114 350.1.13.10 4.2.7.2.686 [id number] [facility] 2021-03-12 19:31:00 2021-03-12 21:28:00 Emergency X ELAN [facility] ERT [id number] [facility] 2021-03-12 19:31:00 2021-03-12 21:28:00 Emergency Ivor, [facility] 1.2840.114 350.1.13.10 4.2.7.2.686 [id number] [facility] 2021-03-12 18:40:00 2021-03-12 19:06:23 [facility]patient [facility] [id number] 2021-03-12 18:40:00 2021-03-12 19:00:00 Urgent Care Nurse, Aniceto Reyes [facility] Reena [facility]?STEPHANIE JENNIFER [facility] 1.2840.114 350.1.13.10 4.2.7.2.686 [id number] [facility] 2020-05-17 00:00:00 2020-05-17 00:00:00 Letter (Out) Alphonso Negron [facility] 1.2840.114 350.1.13.10 4.2.7.2.686 [id number] [facility] 2020-05-16 00:00:00 2020-05-16 00:00:00 Patient Secure Msg Doctor Unassigned, Trezevant [facility] 1.2840.114 350.1.13.10 4.2.7.2.686 [id number] [facility] 2020-05-16 00:00:00 2020-05-16 00:00:00 Letter (Out) Drea Donald [facility] 1.84.114 350.1.13.10 4.2.7.2.686 [id number] [facility] 2020-05-14 14:00:00 2020-05-14 14:00:00 Outpatient R [facility] [id number] [facility] 2020-05-14 13:47:23 2020-05-14 13:53:41 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 Lab, [facility] Reymundo Pateb Carol Keene [facility] Office Building One .840.114 350.1.13.10 4.2.7.2.686 [id number] [facility] 2020-05-11 14:35:25 2020-05-11 15:16:48 Laboratory Only Lab, [facility] Reymundo Pateb Bessie Weber [facility] Office Building One .84.114 350.1.13.10 4.2.7.2.686 [id number] [facility] 2020-05-11 14:20:00 2020-05-11 14:20:00 Outpatient R BELEN WEBER [facility] [id number] [facility] 2020-05-03 00:00:00 2020-05-03 00:00:00 Telephone Gertrudis Robledo [facility] Office Building One ..114 350.1.13.10 4.2.7.2.686 [id number] [facility] 2020-05-01 17:20:00 2020-05-01 17:20:00 Outpatient R [facility] [id number] [facility] 2020-05-01 16:50:13 2020-05-01 17:10:13 Laboratory Only Lab, [facility] Reymundo Pateb Bessie Weber [facility] Office Building One [id number] 350.1.13.10 4.2.7.2.686 [id number] [facility] 2020-05-01 00:00:00 2020-05-01 00:00:00 Letter (Out) Pcp, Patient Does Not Have A [facility] Office Building One 1.114 350.1.13.10 4.2.7.2.686 [id number] [facility] 2020-05-01 00:00:00 2020-05-01 00:00:00 Letter (Out) Doctor Unassigned, Trezevant [facility] 1.2114 350.1.13.10 4.2.7.2.686 [id number] [facility] Results Test Description Test Time Test Comments Results Result Co mments Source [facility] [id number] 00:23:57* Test Item Value Reference Range Interpretation Comme [facility] LIPASE (test code = 8257820543) 62 U/L 0-220 Lab Interpretation (test cod e = 73530-8) Normal [facility] [id number] 00:02:00* Test Item Value Reference Range Interpretation Comme [facility] POCT PREG (test code = 1605) Negative On board controls acceptable with C Line (test code = 3574) Present POCT PREG LOT # (test code = 3575) [id number] POCT PREG TEST DATE ( test code = 3576) 05-28-2023 Lab Interpretation (test cod e = 17941-2) Normal [facility] with [id number] 23:55:57* Test Item Value Reference Range Interpretation Comme nts WBC (test code = 6690-2) 9.10 See_Comment [Automated messa ge] The system which generated this result transmitted reference range: 4.30 - 11.10 10*3/?L. The reference range was not used to interpret this result as normal/abnormal. RBC (test code = 789-8) 3.84 See_Comment L [Automated messa ge] The system which generated this result transmitted reference range: 3.93 - 5.25 10*6/?L. The reference range was not used to interpret this result as normal/abnormal. HGB (test code = 718-7) 11.3 g/dL 11.6-15.0 L HCT (test code = 4544-3) 34.5 % 35.7-45.2 L MCV (test code = 787-2) 89.8 fL 80.6-95.5 MCH (test code = 785-6) 29.4 pg 25.9-32.8 MCHC (test code = 786-4) 32.8 g/dL 31.6-35.1 RDW-SD (test code = 92390-5) 47.8 fL 39.0-49.9 RDW-CV (test code = 788-0) 14.6 % 12.0-15.5 PLT (test code = 777-3) 268 See_Comment [Automated Secure Commanda ge] The system which generated this result transmitted reference range: 166 - 358 10*3/?L. The reference range was not used to interpret this result as normal/abnormal. MPV (test code = 63008-3) 9.9 fL 9.5-12.9 NRBC/100 WBC (test code = 7658457450) 0.0 See_Comment [Automated OnKure ssage] The system which generated this result transmitted reference range: 0.0 - 10.0 /100 WBCs. The reference range was not used to interpret this result as normal/abnormal. NRBC x10^3 (test code = 3757499811) See_Comment [Automated Secure Commanda ge] The system which generated this result transmitted reference range: 10*3/?L. The reference range was not used to interpret this result as normal/abnormal. GRAN MAT (NEUT) % (test code = 770-8) 57.8 % IMM GRAN % (test code = 5774024990) 0.30 % LYMPH % (test code = 736-9) 29.8 % MONO % (test code = 5905-5) 8.2 % EOS % (test code = 713-8) 3.1 % BASO % (test code = 706-2) 0.8 % GRAN MAT x10^3(ANC) (test code = 1562095293) 5.26 10*3/uL 1.88-7.09 IMM GRAN x10^3 (test code = 2809430038) 0.03 10*3/uL 0.00-0.06 LYMPH x10^3 (test code = 731-0) 2.71 10*3/uL 1.32-3.29 MONO x10^3 (test code = 742-7) 0.75 10*3/uL 0.33-0.92 EOS x10^3 (test code = 711-2) 0.28 10*3/uL 0.03-0.39 BASO x10^3 (test code = 704-7) 0.07 10*3/uL 0.01-0.07 Lab Interpretation (test code = 62404-0) Abnormal [facility] URINALYSIS W SPECIFIC [id number] 17:29:00* Test Item Value Reference Range Interpretation Comme nts POCT U SP GRAV (test code = 3255) 1.015 mg/dl 1.005-1.025 POCT PH U (test code = 3254) 6.0 mg/dl 5-8 POCT U LEUK EST (test code = 3263) Neg Negative - Negative POCT U NIT (test code = 3262) Neg Negative - Negati ve POCT U PROT (test code = 3259) Neg Negative - Negative POCT U GLU (test code = 3256) Neg Negative - Negati ve POCT U KETONE (test code = 3258) Neg Negative - Negative POCT U UROBILI (test code = 3260) Neg 0.2-1 POCT U BILI (test code = 3261) Neg Negative - Negative POCT U BLD (test code = 3257) NEg Negative - Negati ve POCT U COLOR (test code = 3266) yellow POCT U APPEAR (test code = 3267) clear [facility] [id number] 17:28:00* Test Item Value Reference Range Interpretation Comme nts POCT PREG (test code = 1605) Negative On board controls acceptable with C Line (test code = 3574) Yes POCT PREG LOT # (test code = 3571) POCT PREG TEST DATE ( test code = 3576) [facility] METABOLIC PANEL (NA, K, CL, CO2, GLUCOSE, BUN, CREATININE, CA)2021-03-13 02:49:01* Test Item Value Reference Range Interpretation Comme nts NA (test code = 3785757706) 137 mmol/L 135-145 K (test code = 0686949891) 3.9 mmol/L 3.5-5.0 CL (test code = 2465873252) 104 mmol/L 98-108 CO2 TOTAL (test code = 8078827237) 26 mmol/L 23-31 AGAP (test code = 1444620379) 2-16 BUN (test code = 1051147738) 14 mg/dL 7-23 GLUCOSE (test code = 7082371155) 91 mg/dL 70-110 CREATININE (test code = 8391308815) 0.82 mg/dL 0.50-1.04 CALCIUM (test code = 6996964317) 9.0 mg/dL 8.6-10.6 eGFR (test code = 5255971038) mL/min/1.73m2 CRAIG (test code = CRAIG) Association of Glomerular Filtration Rate (GFR) and Staging of Kidney Disease* + + +- +| GFR (mL/min/1.73 m2) ?| With Kidney Damage ?| ?Without Kidney Damage+ ------+ ----+ ------+| ?>90 ?| ?Stage one ?| ? Normal ?+ -+ + -+| ?60-89 ?| ?Stage two ?| ? Decreased GFR ? + + +- +| ?30-59 ?| ?Stage three ?| ? Stage three ? + + +- +| ?15-29 ?| ?Stage four ? | ? Stage four ?+ -+ + -+| ?<15 (or dialysis) ? ?| ?Stage five ? | ? Stage five ?+ -+ + -+ *Each stage assumes the associated GFR level has been in effect for at least three months. ?Stages 1 to 5, with or without kidney disease, indicate chronic kidney disease. Notes: Determination of stages one and two (with eGFR >59mL/min/1.73 m2) requires estimation of kidney damage for at least three months as defined by structural or functional abnormalities of the kidney, manifested by either:Pathological abnormalities or Markers of kidney damage (including abnormalities in the composition of the blood or urine or abnormalities in imaging tests). [facility]:48:41* Test Item Value Reference Range Interpretation Comme nts LIPASE (test code = 6214653009) 129 U/L 0-220 Lab Interpretation (test cod e = 53256-3) Normal [facility] WITH [id number] 02:33:21* Test Item Value Reference Range Interpretation Comme nts WBC (test code = 6690-2) See_Comment [Automated Secure Commanda nDreams] The system which generated this result transmitted reference range: 4.30 - 11.10 10*3/?L. The reference range was not used to interpret this result as normal/abnormal. RBC (test code = 789-8) See_Comment [Automated Secure Commanda nDreams] The system which generated this result transmitted reference range: 3.93 - 5.25 10*6/?L. The reference range was not used to interpret this result as normal/abnormal. HGB (test code = 718-7) 13.2 g/dL 11.6-15.0 HCT (test code = 4544-3) 39.3 % 35.7-45.2 MCV (test code = 787-2) 89.3 fL 80.6-95.5 MCH (test code = 785-6) 30.0 pg 25.9-32.8 MCHC (test code = 786-4) 33.6 g/dL 31.6-35.1 RDW-SD (test code = 66103-7) 46.5 fL 39.0-49.9 RDW-CV (test code = 788-0) 14.3 % 12.0-15.5 PLT (test code = 777-3) See_Comment [Automated Secure Commanda ge] The system which generated this result transmitted reference range: 166 - 358 10*3/?L. The reference range was not used to interpret this result as normal/abnormal. MPV (test code = 16099-8) 10.5 fL 9.5-12.9 NRBC/100 WBC (test code = 2199831357) See_Comment [Automated me ssage] The system which generated this result transmitted reference range: 0.0 - 10.0 /100 WBCs. The reference range was not used to interpret this result as normal/abnormal. NRBC x10^3 (test code = 2927573947) <0.01 See_Comment [Automated messa ge] The system which generated this result transmitted reference range: 10*3/?L. The reference range was not used to interpret this result as normal/abnormal. GRAN MAT (NEUT) % (test code = 770-8) 60.6 % IMM GRAN % (test code = 9414078676) 0.60 % LYMPH % (test code = 736-9) 27.9 % MONO % (test code = 5905-5) 7.4 % EOS % (test code = 713-8) 2.8 % BASO % (test code = 706-2) 0.7 % GRAN MAT x10^3(ANC) (test code = 2718196958) 6.59 10*3/uL 1.88-7.09 IMM GRAN x10^3 (test code = 3058940928) 0.06 10*3/uL 0.00-0.06 LYMPH x10^3 (test code = 731-0) 3.04 10*3/uL 1.32-3.29 MONO x10^3 (test code = 742-7) 0.80 10*3/uL 0.33-0.92 EOS x10^3 (test code = 711-2) 0.31 10*3/uL 0.03-0.39 BASO x10^3 (test code = 704-7) 0.08 10*3/uL 0.01-0.07 H Lab Interpretation (test code = 00019-4) Abnormal [facility]"
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
[2023-02-10 03:28] VITALS: BP 114/73; TEMP 98.7; O2SAT 98
--- NOTE | 2023-02-10 17:59 | RAD REPORT ---
EXAM DESCRIPTION: Shoulder Left 2 View RadLex: XR SHOULDER 2 OR MORE VIEWS LEFT CLINICAL HISTORY: 37 years Female, PAIN COMPARISON: None. FINDINGS: 2 views of the left shoulder. Normal osseous mineralization. No acute fracture or dislocat ion. Minimal bony spurring at the acromial clavicular joint. Soft tissues are unremarkable. IMPRESSION: No acute fracture or dislocation. Minimal acromioclavicular joint degenerative changes. Electronically signed by: Brunilda Barry MD 02/10/2023 01:07 AM OPERATING ENGINEER APPRENTICE Due to temporary technical issues with the PACS/Fluency reporting system, reports are being signed by the in house radiologists without review as a courtesy to insure prompt reporting. The interpreting radiologist is fully responsible for the content of the report.
--- NOTE | 2023-02-10 18:02 | RAD REPORT ---
EXAM DESCRIPTION: XR Left Wrist Complete, 3 or More Views CLINICAL HISTORY: The patient is 37 years old and is Female; PAIN TECHNIQUE: Frontal, lateral and oblique views of the left wrist. COMPARISON: No relevant prior studies available. FINDINGS: BONES/JOINTS: Unremarkable. No acute fracture. No dislocation. SOFT TISSUES: Unremarkable. No radiopaque foreign body. IMPRESSION: Normal left wrist radiographs. Electronically signed by: Carey West MD 02/10/2023 01:07 AM POISON INFORMATION SPECIALIST Due to temporary technical issues with the PACS/Fluency reporting system, reports are being signed by the in house radiologists without review as a courtesy to insure prompt reporting. The interpreting radiologist is fully responsible for the content of the report.
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
== END 2023-02-10 02:24 | disposition home or self-care (01) ==
LOC: ER 23:12
DX: S60.212A Contusion of left wrist, initial encounter (principal); M25.512 Pain in left shoulder; V49.49XA Driver injured in collision with other motor vehicles in traffic accident, initial encounter; F17.210 Nicotine dependence, cigarettes, uncomplicated; Z28.310 Unvaccinated for COVID-19
CPT/HCPCS: 70450; 72125; 99282

== ENCOUNTER 2023-09-30 16:51 | Emergency (ER) | payer BC ==
[2023-09-30] MEDS ORDERED: KETOROLAC 30 MG/ML INJ ONE (19:09)
[2023-09-30] MEDS ORDERED: dexAMETHasone 10 MG/ML VIAL ONE (19:09)
[2023-09-30] MEDS ORDERED: CYCLOBENZAPRINE 10 MG TAB ONE (19:10)
[2023-09-30 19:58] LABS: Specific Gravity 1.005 (1.005-1.030)
[2023-09-30 20:03] LABS: Specific Gravity 1.005 (1.005-1.030); Sqamous Epithelial <5 /HPF (None Seen); Urine Bacteria <20 /HPF (<20); Urine Bilirubin NEGATIVE (Negative); Urine Blood Negative (Negative); Urine Clarity Turbid (Clear); Urine Color Colorless (Yellow); Urine Culture Reflex Order NOT NEEDED; Urine Glucose NEGATIVE (Negative); Urine Ketones NEGATIVE (Negative); Urine Micro Reflex YN NO BILL MICROSCOPIC; Urine Nitrite NEGATIVE (Negative); Urine Protein NEGATIVE (Negative); Urine RBC <5 /HPF (None Seen); Urine Urobilinogen Normal (Normal); Urine WBC <5 /HPF (<5)
--- NOTE | 2023-09-30 20:36 | RAD REPORT ---
EXAM DESCRIPTION: CT - Spine Lumbar Wo Con - 09/30/2023 8:17 pm CLINICAL HISTORY: Radiculopathy. PAIN COMPARISON: <Comparisons> TECHNIQUE: Axial noncontrast CT imaging of the lumbar spine was performed with coronal and sagittal re-formatted images. All CT scans are performed using dose optimization technique as appropriate and may include automated exposure control or mA/KV adjustment according to patient size. FINDINGS: No acute lumbar spine fracture seen. No aggressive marrow pattern or malalignment. Paraspinal tissues are normal in thickness. No paraspinal abscess or hematoma seen. Mild lower lumbar spondylosis. Cholecystectomy clips. IMPRESSION: No acute lumbar spine abnormality. Mild lower lumbar spondylosis.
--- NOTE | 2023-09-30 20:59 | ER ---
Nurse's Notes [facility] Name: Lissa Espinal Age: 38 yrs Sex: Female : 1985 Arrival Date: 09/30/2023 Time: 16:51 Bed 12 Private MD: Diagnosis: Low back pain Presentation: 09/29 17:28 Chief complaint: Patient states: Low back pain since 10am today. Coronavirus screen: nj Vaccine status: Patient reports being unvaccinated. Ebola Screen: Patient denies travel to an Ebola-affected area in the 21 days before illness onset. Initial Sepsis Screen: Does the patient meet any 2 criteria? No. Patient's initial sepsis screen is negative. Does the patient have a suspected source of infection? No. Patient's initial sepsis screen is negative. Risk Assessment: Do you want to hurt yourself or someone else? Patient reports no desire to harm self or others. Onset of symptoms was September 30, 2023 at 10:00. 17:28 Method Of Arrival: Ambulatory [facility] 17:28 Acuity: ROSLYN 3 nj1 Triage Assessment: 17:30 General: Appears in no apparent distress. uncomfortable, Behavior is calm, cooperative, nj1 appropriate for age. Pain: Complains of pain in back Pain currently is 8 out of 10 on a pain scale. RN INTERNATIONAL: 19:22 6, Full Term 5, Premature 0, 0, Living 5, LMP 09/01/2023, kj2 unknown Historical: - Allergies: 17:29 No Known Allergies; nj1 - PMHx: 17:29 Kidney stones; hietal hernia; GERD (Unknown); nj1 - PSHx: 17:29 Cholecystectomy; section; nj1 - Immunization history:: Client reports having NOT received the Covid vaccine. - Infectious Disease History:: Denies. - Social history:: Smoking status: Patient reports the use of cigarette tobacco products, smokes one pack cigarettes per day. Screenin:15 [facility] ED Fall Risk Assessment (Adult) History of falling in the last 3 months, kj2 including since admission No falls in past 3 months (0 pts) Confusion or Disorientation No (0 pts) Intoxicated or Sedated No (0 pts) Impaired Gait No (0 pts) Mobility Assist Device Used No (0 pt) Altered Elimination No (0 pt) Score/Fall Risk Level 0 - 2 = Low Risk. Abuse screen: Denies threats or abuse. Denies injuries from another. Nutritional screening: No deficits noted. Tuberculosis screening: No symptoms or risk factors identified. Assessment: 19:20 General: Appears uncomfortable, Behavior is calm, cooperative. Pain: Complains of pain kj2 in right low back and left low back Pain currently is 8 out of 10 on a pain scale. Neuro: Level of Consciousness is awake, alert, obeys commands, Oriented to person, place, time. Cardiovascular: Patient's skin is warm and dry. Respiratory: Airway is patent Respiratory effort is even, unlabored. GI: No deficits noted. : No deficits noted. 19:23 Reassessment: Patient and/or family updated on plan of care and expected duration. Pain kj2 level reassessed. Patient is alert, oriented x 3, equal unlabored respirations, skin warm/dry/pink. 21:27 Reassessment: Patient and/or family updated on plan of care and expected duration. Pain kj2 level reassessed. Patient is alert, oriented x 3, equal unlabored respirations, skin warm/dry/pink. Vital Signs: 17:28 BP 115 / 64; Pulse 90; Resp 18; Temp 97.2(TE); Pulse Ox 96% ; Weight 104.33 kg; Height nj1 5 ft. 7 in. ; Pain 8/10; 21:26 BP 99 / 65; Pulse 78; Resp 18; Temp 98.1; Pulse Ox 100% on R/A; kj2 17:28 Body Mass Index 36.02 (104.33 kg, 170.18 cm) nj1 17:28 Pain Scale: Adult [facility] ED Course: 16:56 Patient arrived in ED. ra3 17:29 Jessy Lowery PA-C is PHCP. sb4 17:29 Colten Crews MD is Attending Physician. sb4 17:29 Triage completed. nj1 17:30 Arm band placed on right wrist. nj1 19:04 Liv Gracia, BETHANY is Primary Nurse. kj2 19:43 Radiology exam delayed due to test not completed at this time. mw3 20:18 CT Lumbar Spine Wo Con In Process Unspecified. EDMS 21:16 Patient has correct armband on for positive identification. Provided Education on: call kj2 light, fall precautions. 21:27 Patient did not have IV access during this emergency room visit. kj2 21:28 No provider procedures requiring assistance completed. kj2 Administered Medications: 19:19 Drug: Dexamethasone IM 10 mg IM once Route: IM; Site: left deltoid; kj2 20:44 Follow up: Response: No adverse reaction kj2 19:19 Drug: Cyclobenzaprine PO 10 mg PO once Route: PO; kj2 20:44 Follow up: Response: No adverse reaction kj2 19:20 Drug: Ketorolac IM 30 mg IM once Route: IM; Site: right deltoid; kj2 20:45 Follow up: Response: No adverse reaction kj2 21:25 Drug: Hydrocodone-Acetaminophen PO (7.5 mg-325 mg) 1 tabs PO once Route: PO; kj2 21:28 Follow up: Response: No adverse reaction kj2 Medication: 21:16 VIS not applicable for this client. kj2 Outcome: 20:58 Discharge ordered by MD. sb4 21:27 Discharged to home ambulatory, kj2 21:27 Condition: stable 21:27 Discharge instructions given to Instructed on discharge instructions, follow up and referral plans. Demonstrated understanding of instructions, follow-up care, medications, Prescriptions given X 3, 21:28 Patient left the ED. kj2 Signatures: Dispatcher [employer] EDMS Sil Mtz mw3 Jessy Lowery PA-C PAMary sb4 Jenna Jean Baptiste, RN RN nj1 Bere Bernard ra3 Liv Gracia RN RN kj2 Corrections: (The following items were deleted from the chart) 17:30 17:29 PMHx: hepatic cyst; nj1 nj1
--- NOTE | 2023-09-30 20:59 | EDPHYS ---
Physician Documentation [facility] Name: Lissa Espinal Age: 38 yrs Sex: Female : 1985 Arrival Date: 09/30/2023 Time: 16:51 Bed 12 Private MD: ROWDY Physician Colten Crews HPI: 09/29 18:49 This 38 yrs old Female presents to ER via Ambulatory with complaints of Low Back Pain. sb4 18:49 The patient presents with pain that is acute, with no known mechanism of injury. The sb4 symptoms are located in the low back. The pain does not radiate. The problem was sustained without known cause. Onset: The symptoms/episode began/occurred this morning. Modifying factors: The patient symptoms are alleviated by remaining still, the patient symptoms are aggravated by any movement. Associated signs and symptoms: The patient has no apparent associated signs or symptoms. The patient has not experienced similar symptoms in the past. 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 - Infectious Disease History:: Denies. - Social history:: Smoking status: Patient reports the use of cigarette tobacco products, smokes one pack cigarettes per day. ROS: 18:49 Constitutional: Negative for fever, chills, and weight loss, sb4 18:49 Back: Positive for pain at rest, pain with movement, of the lumbar area, left low back and right low back, 18:49 All other systems are negative, Exam: 18:49 Head/Face: Normocephalic, atraumatic. Eyes: Extra-ocular motions intact. Periorbital sb4 areas with no swelling, redness, or edema. ENT: Mucous membranes moist. Skin: Warm, dry with normal turgor. Normal color with no rashes, no lesions, and no evidence of cellulitis. MS/ Extremity: Pulses equal, no cyanosis. Neurovascular intact. Full, normal range of motion. Neuro: Awake and alert, GCS 15, oriented to person, place, time, and situation. Motor strength 5/5 in all extremities. Sensory grossly intact. 18:49 Constitutional: The patient appears in no acute distress, alert, awake, obese, 18:49 Back: pain, that is moderate, of the lumbar area, left low back and right low back, ROM is painful, normal spinal alignment noted, CVA tenderness, is absent, vertebral tenderness, is not appreciated, muscle spasm, is not present, Vital Signs: 17:28 BP 115 / 64; Pulse 90; Resp 18; Temp 97.2(TE); Pulse Ox 96% ; Weight 104.33 kg; Height nj1 5 ft. 7 in. ; Pain 8/10; 21:26 BP 99 / 65; Pulse 78; Resp 18; Temp 98.1; Pulse Ox 100% on R/A; kj2 17:28 Body Mass Index 36.02 (104.33 kg, 170.18 cm) nj1 17:28 Pain Scale: Adult nj1 MDM: 17:29 Patient medically screened. sb4 20:58 Data reviewed: vital signs, nurses notes, lab test result(s), radiologic studies, and sb4 as a result, I will discharge patient. Counseling: I had a detailed discussion with the patient and/or guardian regarding the historical points, exam findings, and any diagnostic results supporting the discharge/admit diagnosis, lab results, radiology results, to return to the emergency department if symptoms worsen or persist or if there are any questions or concerns that arise at home. 09/29 17:50 Order name: UAM; Complete Time: 20:05 sb4 09/29 17:50 Order name: PREGU; Complete Time: 19:59 sb4 09/29 18:41 Order name: CT Lumbar Spine Wo Con; Complete Time: 20:38 sb4 Administered Medications: 19:19 Drug: Dexamethasone IM 10 mg IM once Route: IM; Site: left deltoid; kj2 20:44 Follow up: Response: No adverse reaction kj2 19:19 Drug: Cyclobenzaprine PO 10 mg PO once Route: PO; kj2 20:44 Follow up: Response: No adverse reaction kj2 19:20 Drug: Ketorolac IM 30 mg IM once Route: IM; Site: right deltoid; kj2 20:45 Follow up: Response: No adverse reaction kj2 21:25 Drug: Hydrocodone-Acetaminophen PO (7.5 mg-325 mg) 1 tabs PO once Route: PO; kj2 21:28 Follow up: Response: No adverse reaction kj2 Disposition: 20:21 Co-signature as Attending Physician, Colten Crews MD I reviewed the patient's care rt provided by the Advanced Practice Provider and agree with the diagnosis and treatment plan. Disposition Summary: 09/30/23 20:58 Discharge Ordered Notes: Location: Home sb4 Problem: new sb4 Symptoms: have improved sb4 Condition: Stable sb4 Diagnosis - Low back pain sb4 Followup: sb4 - With: Private Physician - When: As needed - Reason: Further diagnostic work-up, Recheck today's complaints, Re-evaluation by your physician Discharge Instructions: - Discharge Summary Sheet sb4 - Acute Back Pain, Adult sb4 - Pain Without a Known Cause sb4 Forms: - Patient Portal Instructions sb4 - Leadership Thank You Letter sb4 Prescriptions: - Cyclobenzaprine 10 mg Oral Tablet - take 1 tablet ORAL route every 8 hours As needed; 30 tablet; Refills: 0, sb4 Product Selection Permitted - Diclofenac Sodium 75 mg Oral Tablet Sustained Release - take 1 tablet ORAL route 2 times per day; 30 tablet; Refills: 0, Product sb4 Selection Permitted - Medrol (Romaine) 4 mg Oral Tablets, Dose Pack - take 1 tablet ORAL route as directed - follow package instructions; 1 packet; sb4 Refills: 0, Product Selection Permitted Signatures: Dispatcher [employer] Jessy De La Torre PA-C PA-C sb4 Colten Crews MD MD rt Jenna Jean Baptiste RN RN nj1 Liv Gracia RN RN kj2 Corrections: (The following items were deleted from the chart) 17:30 17:29 PMHx: hepatic cyst; nj1 nj1
[2023-09-30] MEDS ORDERED: HYDROCODONE/APAP 7.5/325 MG TAB ONE (21:20)
[2023-10-01 01:54] VITALS: BP 99/65; TEMP 98.1; O2SAT 100
== END 2023-09-30 21:28 | disposition home or self-care (01) ==
LOC: ER 16:51
DX: M54.50 Low back pain, unspecified (principal)
CPT/HCPCS: 81001; 81025; 72131; 96372; 99284; J1100

== ENCOUNTER 2024-02-22 15:29 | Emergency (ER) | payer BC ==
[2024-02-22] MEDS ORDERED: KETOROLAC 30 MG/ML INJ ONE (17:24)
[2024-02-22] MEDS ORDERED: ACETAMINOPHEN 500 MG TAB ONE (17:24)
[2024-02-22] MEDS ORDERED: methocarbamoL 500 MG TAB ONE (17:24)
--- NOTE | 2024-02-22 18:03 | RAD REPORT ---
EXAMINATION: XR RIGHT SHOUDLER CLINICAL INDICATION: Female, 38 years old. shoulder pain RIGHT TECHNIQUE: Multiple views of the right shoulder were obtained. COMPARISON: No prior exam. FINDINGS: Mild AC joint and glenohumeral joint arthritic changes. No fracture, dislocation or AVN.
--- NOTE | 2024-02-22 18:05 | ER ---
Nurse's Notes [facility] Name: Lissa Espinal Age: 38 yrs Sex: Female : 1985 Arrival Date: 02/22/2024 Time: 15:29 Bed 10 Private MD: Diagnosis: Sprain of right rotator cuff capsule Presentation: 02/21 16:38 Chief complaint: Patient states: right shoulder pain onset 1 month ago. pt states that cm10 the pain started after doing some lifting. Coronavirus screen: Client denies travel out of the [place] in the last 14 days. Ebola Screen: Patient denies travel to an Ebola-affected area in the 21 days before illness onset. No symptoms or risks identified at this time. Initial Sepsis Screen: Does the patient meet any 2 criteria? No. Patient's initial sepsis screen is negative. Does the patient have a suspected source of infection? No. Patient's initial sepsis screen is negative. Risk Assessment: Do you want to hurt yourself or someone else? Patient reports no desire to harm self or others. Onset of symptoms is unknown. 16:38 Method Of Arrival: Ambulatory cm10 16:38 Acuity: ROSLYN 4 cm10 Triage Assessment: 16:39 General: Appears in no apparent distress. comfortable, Behavior is calm, cooperative, cm10 appropriate for age. Neuro: No deficits noted. Level of Consciousness is awake, alert, obeys commands, Oriented to person, place, time, situation, Appropriate for age. Respiratory: No deficits noted. Airway is patent Respiratory effort is even, unlabored, Respiratory pattern is regular, symmetrical. Musculoskeletal: Reports pain in right shoulder. 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 - Infectious Disease History:: Denies. - Social history:: Smoking status: Patient reports the use of cigarette tobacco products, smokes one pack cigarettes per day. Screenin:42 [facility] ED Fall Risk Assessment (Adult) History of falling in the last 3 months, rs5 including since admission No falls in past 3 months (0 pts) Confusion or Disorientation No (0 pts) Intoxicated or Sedated No (0 pts) Impaired Gait No (0 pts) Mobility Assist Device Used No (0 pt) Altered Elimination No (0 pt) Score/Fall Risk Level 0 - 2 = Low Risk Oriented to surroundings, Maintained a safe environment. Abuse screen: Denies threats or abuse. Nutritional screening: No deficits noted. Tuberculosis screening: No symptoms or risk factors identified. Assessment: 16:45 General: Appears in no apparent distress. uncomfortable, Behavior is calm, cooperative. rs5 Pain: Complains of pain in right shoulder Pain currently is 4 out of 10 on a pain scale. Quality of pain is described as aching, Is continuous. Neuro: Level of Consciousness is awake, alert, obeys commands, Oriented to person, place, time, situation. Cardiovascular: Patient's skin is warm and dry. Respiratory: Airway is patent Respiratory effort is even, unlabored, Respiratory pattern is regular, symmetrical. GI: Abdomen is round non-distended, Abd is soft and non tender X 4 quads. : No signs and/or symptoms were reported regarding the genitourinary system. EENT: No signs and/or symptoms were reported regarding the EENT system. Derm: Skin is intact, Skin is pink, warm \T\ dry. Musculoskeletal: Range of motion: limited in right shoulder. 17:55 Reassessment: Patient and/or family updated on plan of care and expected duration. Pain rs5 level reassessed. Patient is alert, oriented x 3, equal unlabored respirations, skin warm/dry/pink. 18:17 Reassessment: No changes from previously documented assessment. rs5 Vital Signs: 16:40 BP 127 / 75; Pulse 69; Resp 16; Temp 97.6(TE); Pulse Ox 100% ; Weight 104.33 kg; Height cm10 5 ft. 7 in. ; Pain 8/10; 18:17 BP 125 / 71; Pulse 71; Resp 17; Pulse Ox 98% on R/A; rs5 16:40 Body Mass Index 36.02 (104.33 kg, 170.18 cm) cm10 16:40 Pain Scale: Adult cm10 ED Course: 15:32 Patient arrived in ED. mr 15:37 Stuart Pringle MD is Attending Physician. ec2 16:39 Triage completed. cm10 16:39 Arm band placed on left wrist. Patient placed in waiting room. cm10 16:42 Patient has correct armband on for positive identification. Placed in gown. Bed in low rs5 position. Call light in reach. Side rails up X2. 16:42 No provider procedures requiring assistance completed. rs5 17:10 Jamie Charles, RN is Primary Nurse. rs5 17:46 Shoulder Right (2 View) XRAY In Process Unspecified. EDMS 18:18 Patient did not have IV access during this emergency room visit. rs5 18:19 Provided Education on: discharge instructions . rs5 Administered Medications: 17:36 Drug: Methocarbamol PO 500 mg PO once Route: PO; rs5 18:19 Follow up: Response: No adverse reaction; Pain is decreased rs5 17:36 Drug: Ketorolac IM 30 mg IM once Route: IM; Site: left deltoid; rs5 18:19 Follow up: Response: No adverse reaction; Pain is decreased rs5 17:36 Drug: Acetaminophen PO 1000 mg PO once Route: PO; rs5 18:19 Follow up: Response: No adverse reaction; Pain is decreased rs5 Medication: 18:18 VIS not applicable for this client. rs5 Outcome: 18:04 Discharge ordered by . ec2 18:18 Discharged to home ambulatory, with family, rs5 18:18 Condition: stable 18:18 Discharge instructions given to patient, family, Instructed on discharge instructions, follow up and referral plans. medication usage, Demonstrated understanding of instructions, follow-up care, medications, Prescriptions given X 1, 18:19 Patient left the ED. rs5 Signatures: Dispatcher [employer] [facility] Tea Crow, [facility] Reg Jamie Murphy, RN RN rs5 Deena Jarquin RN RN cm10 Stuart Pringle MD MD ec2
--- NOTE | 2024-02-22 18:05 | EDPHYS ---
Physician Documentation [facility] Name: Lissa Espinal Age: 38 yrs Sex: Female : 1985 Arrival Date: 02/22/2024 Time: 15:29 Bed 10 Private MD: ED Physician Stuart Pringle HPI: 02/21 16:48 This 38 yrs old Female presents to ER via Ambulatory with complaints of Shoulder Pain, ec2 Right. 17:10 Patient with complaints of right shoulder pain. She had strained several weeks ago. No ec2 falls injuries or trauma. Pain with ROM of abduction.. 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 - Infectious Disease History:: Denies. - Social history:: Smoking status: Patient reports the use of cigarette tobacco products, smokes one pack cigarettes per day. ROS: 17:10 Constitutional: as per hpi ec2 Exam: 17:10 Constitutional: GEN: NAD Head: atraumatic Eyes: EOMI Ears: External ears are ec2 normal. CV: regular rate LUNGS: no respiratory distress ABD: non-distended SKIN: no evidence of rashes MSK: Right upper extremity with pain with range of motion, abduction above 60 degrees. Otherwise good external rotation. Vital Signs: 16:40 BP 127 / 75; Pulse 69; Resp 16; Temp 97.6(TE); Pulse Ox 100% ; Weight 104.33 kg; Height cm10 5 ft. 7 in. ; Pain 8/10; 18:17 BP 125 / 71; Pulse 71; Resp 17; Pulse Ox 98% on R/A; rs5 16:40 Body Mass Index 36.02 (104.33 kg, 170.18 cm) cm10 16:40 Pain Scale: Adult cm10 MDM: 16:48 Medical Screening Exam initiated ec2 17:10 Data reviewed: vital signs, nurses notes. ED course: Patient arrives today for ec2 evaluation of right shoulder pain. Examination is revealing for well-appearing nontoxic individual with range of motion limited by pain with abduction. Will obtain radiograph to evaluate for bony pathology. Differential diagnosis considered included processes such as fracture, dislocation, rotator cuff injury.. 18:04 ED course: Shoulder x-ray independently reviewed and interpreted by me, shows no bony ec2 fracture. Will discharge home. Return precautions given. Instructed to follow-up with PCP.. 02/21 16:43 Order name: Shoulder Right (2 View) XRAY; Complete Time: 18:04 ec2 02/21 16:43 Order name: Sling; Complete Time: 18:04 ec2 Administered Medications: 17:36 Drug: Methocarbamol PO 500 mg PO once Route: PO; rs5 18:19 Follow up: Response: No adverse reaction; Pain is decreased rs5 17:36 Drug: Ketorolac IM 30 mg IM once Route: IM; Site: left deltoid; rs5 18:19 Follow up: Response: No adverse reaction; Pain is decreased rs5 17:36 Drug: Acetaminophen PO 1000 mg PO once Route: PO; rs5 18:19 Follow up: Response: No adverse reaction; Pain is decreased rs5 Disposition Summary: 02/22/24 18:04 Discharge Ordered Notes: Location: Home ec2 Condition: Stable ec2 Diagnosis - Sprain of right rotator cuff capsule ec2 Followup: ec2 - With: Private Physician - When: - Reason: Re-evaluation by your physician Discharge Instructions: - Discharge Summary Sheet ec2 - Rotator Cuff Tendinitis ec2 Forms: - Medication Reconciliation Form ec2 - Antibiotic Education ec2 - Prescription Opioid Use ec2 - Patient Portal Instructions ec2 - Leadership Thank You Letter ec2 Prescriptions: - methocarbamol 500 mg Oral tablet - take 1 tablet ORAL route 4 times per day; 20 tablet; Refills: 0, Product ec2 Selection Permitted Signatures: Dispatcher [employer] Jamie Reaves RN RN rs5 Deena Jarquin RN RN cm10 Stuart Pringle MD MD ec2 Corrections: (The following items were deleted from the chart) 16:43 16:43 Shoulder Right 2 View+RAD.RAD.BRZ ordered. EDMS EDMS
[2024-02-22 18:33] VITALS: TEMP 97.6
[2024-02-22 18:34] VITALS: BP 125/71; O2SAT 98
== END 2024-02-22 18:19 | disposition home or self-care (01) ==
LOC: ER 15:29
DX: S43.421A Sprain of right rotator cuff capsule, initial encounter (principal); F17.210 Nicotine dependence, cigarettes, uncomplicated
CPT/HCPCS: 96372; 99284

== ENCOUNTER 2024-11-17 19:48 | Emergency (ER) | payer BC ==
[2024-11-17 20:47] LABS: Influenza A Ag Negative; Influenza B Ag Negative; SARS-CoV-2 Antigen Rapid Res Negative (Negative)
--- NOTE | 2024-11-17 21:53 | EDPHYS ---
Physician Documentation [facility] Name: Lissa Espinal Age: 39 yrs Sex: Female : 1985 Arrival Date: 11/17/2024 Time: 19:48 Bed DX4 Private MD: ED Physician Ronny Albarado HPI: 11/17 20:45 This 39 yrs old Female presents to ER via Ambulatory with complaints of Flu Symptoms. cp 20:45 The patient or guardian reports cough, that is intermittent, with productive sputum, cp flu symptoms, fever, body aches, chest congestion, ear pain, sore throat, tooth pain. Onset: The symptoms/episode began/occurred 2 day(s) ago. Associated signs and symptoms: Pertinent negatives: chest pain, diarrhea, vomiting. Severity of symptoms: in the emergency department the symptoms are unchanged despite home interventions. 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 - Infectious Disease History:: Denies. - Social history:: Smoking status: Patient reports the use of cigarette tobacco products, smokes one pack cigarettes per day. ROS: 20:50 Eyes: Negative for injury, pain, redness, and discharge, cp 20:50 Constitutional: Positive for body aches, fever, Negative for poor PO intake, 20:50 ENT: Positive for ear pain, sore throat, Teeth pain Negative for drainage from ear(s), difficulty swallowing, difficulty handling secretions, 20:50 Neck: Negative for pain with movement, pain at rest, stiffness, 20:50 Cardiovascular: Negative for chest pain, edema, palpitations, 20:50 Respiratory: Positive for cough, "sounds productive", 20:50 Abdomen/GI: Negative for abdominal pain, vomiting, diarrhea, constipation, 20:50 Neuro: Negative for altered mental status, 20:50 All other systems are negative, Exam: 20:55 Constitutional: The patient appears in no acute distress, alert, awake, cp non-diaphoretic, non-toxic, well developed, well nourished, obese, 20:55 Head/Face: Normocephalic, atraumatic. cp 20:55 Eyes: Periorbital structures: appear normal, Conjunctiva: normal, no exudate, no injection, Sclera: no appreciated abnormality, Lids and lashes: appear normal, bilaterally, 20:55 ENT: External ear(s): are unremarkable, Ear canal(s): are normal, clear, TM's: dullness, bilaterally, Nose: is normal, Mouth: Lips: moist, Oral mucosa: moist, Posterior pharynx: Airway: no evidence of obstruction, patent, Tonsils: no enlargement, no exudate, erythema, that is mild, exudate, is not appreciated, Dental exam: abscess, is not appreciated, gum swelling, not appreciated, 20:55 Neck: ROM/movement: is normal, is supple, without pain, no range of motions limitations, 20:55 Chest/axilla: Inspection: normal, 20:55 Cardiovascular: Rate: normal, 20:55 Respiratory: the patient does not display signs of respiratory distress, Respirations: normal, no use of accessory muscles, no retractions, labored breathing, is not present, Breath sounds: decreased breath sounds, are not appreciated, stridor, is not appreciated, + upper airway congestion. wheezing: is not appreciated, 20:55 Abdomen/GI: Inspection: obese 20:55 Skin: cellulitis, is not appreciated, no rash present. Vital Signs: 20:11 BP 137 / 77; Pulse 89; Resp 17; Temp 99; Pulse Ox 98% ; Weight 104.33 kg; Height 5 ft. me1 7 in. ; Pain 9/10; 22:02 BP 132 / 68; Pulse 86; Resp 18; Temp 98.9; Pulse Ox 98% ; me1 20:11 Body Mass Index 36.02 (104.33 kg, 170.18 cm) me1 20:11 Pain Scale: Adult me1 MDM: 20:12 Medical Screening Exam initiated cp 21:00 Differential diagnosis: bronchitis, flu, URI, pneumonia, dental abscess, ear infection, cp Strep throat. 21:52 Data reviewed: vital signs, nurses notes, lab test result(s), and as a result, I will cp discharge patient. 21:52 Care significantly affected by the following chronic conditions: Obesity. Counseling: I cp had a detailed discussion with the patient and/or guardian regarding the historical points, exam findings, and any diagnostic results supporting the discharge/admit diagnosis, lab results, to return to the emergency department if symptoms worsen or persist or if there are any questions or concerns that arise at home. 11/17 20:20 Order name: Group A Streptococcus Rapid; Complete Time: 07:17 me1 11/17 20:20 Order name: COVID-19 Ag + Flu A+B Ag; Complete Time: 07:17 me1 11/17 20:40 Order name: Throat Culture EDMS Administered Medications: No medications were administered Disposition: 11/18 07:18 Co-signature as Attending Physician, Ronny Albarado DO I reviewed the patient's care tt7 provided by the Advanced Practice Provider and agree with the diagnosis and treatment plan. Disposition Summary: 11/17/24 21:52 Discharge Ordered Notes: Location: Home cp Problem: new cp Symptoms: have improved cp Condition: Stable cp Diagnosis - Cough cp - Acute pharyngitis, unspecified cp Followup: cp - With: Private Physician - When: 2 - 3 days - Reason: Worsening of condition Discharge Instructions: - Discharge Summary Sheet cp - Pharyngitis cp - Sore Throat cp - Cough, Adult cp Forms: - Medication Reconciliation Form cp - Antibiotic Education cp - Prescription Opioid Use cp - Patient Portal Instructions cp - Leadership Thank You Letter cp Prescriptions: - Bromfed DM 2-30-10 mg/5 mL Oral syrup - administer 10 milliliter ORAL route every 8 hours as needed for cold symptoms; cp 240 milliliter; Refills: 0, Product Selection Permitted - Ibuprofen 800 mg Oral Tablet - take 1 tablet ORAL route every 8 hours As needed take with food; 30 tablet; cp Refills: 0, Product Selection Permitted - Zithromax Z-Romaine 250 mg Oral Tablet - take 1 tablet ORAL route as directed for 5 days Day 1 - take two (2) tablets cp one time. Day 2, 3, 4 , 5 take one (1) tablet once daily.; 6 tablet; Refills: 0, Product Selection Permitted Signatures: Dispatcher [employer] EDWI Yash Johnson PA-C PAYanniC Sil Villa RN RN sd1 Ronny Albarado DO DO tt7 Corrections: (The following items were deleted from the chart) 11/17 20:14 20:13 PMHx: hietal hernia; me1 me1 20:20 20:20 Group A Streptococcus Rapid Sc+I.LAB.BRZ ordered. EDMS EDMS 20:20 20:20 COVID-19 Ag + Flu A+B Ag+I.LAB.BRZ ordered. EDMS EDMS 11/18 18:20 18:17 Constitutional: Positive for body aches, fever, Negative for poor PO intake, cp cp 18:20 18:17 Cardiovascular: Negative for chest pain, edema, palpitations, cp cp 18:20 18:17 Respiratory: Positive for cough, "sounds productive", cp cp 18:20 18:17 Abdomen/GI: Negative for abdominal pain, vomiting, diarrhea, constipation, cp cp 18:20 18:17 Eyes: Negative for injury, pain, redness, and discharge, cp cp 18:20 18:17 Neuro: Negative for altered mental status, cp cp 18:20 18:17 ENT: Positive for ear pain, sore throat, Teeth pain Negative for drainage from cp ear(s), difficulty swallowing, difficulty handling secretions, cp 18:20 18:17 Neck: Negative for pain with movement, pain at rest, stiffness, cp cp 18:20 18:17 All other systems are negative, cp cp
--- NOTE | 2024-11-17 21:53 | ER ---
Nurse's Notes [facility] Name: Lissa Espinal Age: 39 yrs Sex: Female : 1985 Arrival Date: 11/17/2024 Time: 19:48 Bed DX4 Private MD: Diagnosis: Cough;Acute pharyngitis, unspecified Presentation: 11/17 20:11 Chief complaint: Patient states: cough, congestion, sore throat, bilateral ear pain, R me1 jaw pain, fever, body aches for 2 days. Coronavirus screen: Vaccine status: Patient reports being unvaccinated. Ebola Screen: No symptoms or risks identified at this time. Initial Sepsis Screen: Does the patient meet any 2 criteria? No. Patient's initial sepsis screen is negative. Does the patient have a suspected source of infection? No. Patient's initial sepsis screen is negative. Risk Assessment: Do you want to hurt yourself or someone else? Patient reports no desire to harm self or others. Onset of symptoms was November 15, 2024. 20:11 Method Of Arrival: Ambulatory ak1 20:11 Acuity: ROSLYN 3 me1 Triage Assessment: 20:13 General: Appears ill, well groomed, well developed, well nourished, Behavior is calm, me1 cooperative, appropriate for age, Reports cough, congestion, sore throat, bilateral ear pain, R jaw pain, fever, body aches for 2 days. Pain: Complains of pain in left aspect of posterior pharynx, right aspect of posterior pharynx, right jaw, right ear and left ear Pain does not radiate. Pain currently is 9 out of 10 on a pain scale. Quality of pain is described as aching, Pain began 2-3 days ago. Is continuous. EENT: Reports nasal congestion pain in left aspect of posterior pharynx, right aspect of posterior pharynx, left ear and right ear when swallowing since 2 days ago. Neuro: Level of Consciousness is awake, alert, obeys commands, Oriented to person, place, time, situation, Appropriate for age. Cardiovascular: Patient's skin is warm and dry. Respiratory: Reports cough that is pain with cough since 2 days ago Airway is patent Respiratory effort is even, unlabored, Respiratory pattern is regular, symmetrical. GI: No signs and/or symptoms were reported involving the gastrointestinal system. : No signs and/or symptoms were reported regarding the genitourinary system. Derm: Skin is intact, is healthy with good turgor, Skin is normal. Musculoskeletal: Circulation, motion, and sensation intact. Range of motion: intact in all extremities, Reports generalized body aches. 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 - Infectious Disease History:: Denies. - Social history:: Smoking status: Patient reports the use of cigarette tobacco products, smokes one pack cigarettes per day. Screenin:51 [facility] ED Fall Risk Assessment (Adult) History of falling in the last 3 months, me1 including since admission No falls in past 3 months (0 pts) Confusion or Disorientation No (0 pts) Intoxicated or Sedated No (0 pts) Impaired Gait No (0 pts) Mobility Assist Device Used No (0 pt) Altered Elimination No (0 pt) Score/Fall Risk Level 0 - 2 = Low Risk Maintained a safe environment, Provided non-skid footwear, Hourly rounding (assess needs \T\ fall precautionary measures) done. Abuse screen: Denies threats or abuse. Nutritional screening: No deficits noted. Tuberculosis screening: No symptoms or risk factors identified. Assessment: 21:51 General: See triage assessment. me1 Vital Signs: 20:11 BP 137 / 77; Pulse 89; Resp 17; Temp 99; Pulse Ox 98% ; Weight 104.33 kg; Height 5 ft. me1 7 in. ; Pain 9/10; 22:02 BP 132 / 68; Pulse 86; Resp 18; Temp 98.9; Pulse Ox 98% ; me1 20:11 Body Mass Index 36.02 (104.33 kg, 170.18 cm) me1 20:11 Pain Scale: [place] [facility] [place]: 19:53 Patient arrived in ED. im 19:55 Yash Johnson PA-C is PHCP. cp 19:55 Tarleton, Ronny, DO is Attending Physician. cp 20:13 Triage completed. me1 20:14 Arm band placed on Patient placed in waiting room. me1 20:21 COVID swab sent to lab. Flu and/or RSV swab sent to lab. Strep swab sent to lab. me1 21:51 Patient has correct armband on for positive identification. Provided Education on: POC. me1 Verbalized understanding. . 21:51 No provider procedures requiring assistance completed. Patient did not have IV access me1 during this emergency room visit. 21:53 Sil Cagle, RN is Primary Nurse. me1 Administered Medications: No medications were administered Medication: 21:51 VIS not applicable for this client. me1 Outcome: 21:52 Discharge ordered by MD. cp 22:02 Discharged to home ambulatory, with significant other, me1 22:02 Condition: stable 22:02 Discharge instructions given to patient, significant other, Instructed on discharge instructions, follow up and referral plans. medication usage, Demonstrated understanding of instructions, follow-up care, medications, Prescriptions given X 3, 22:03 Patient left the ED. me1 Signatures: Yash Johnson, PAYanniC PA-C Pamela Tee Michelle, RN RN me1 Corrections: (The following items were deleted from the chart) 20:14 20:13 PMHx: hietal hernia; me1 me1 21:10 20:11 Chief complaint: Patient states: cough, congestion, sore throat, bilateral ear me1 pain, R jaw pain, fever, body aches for 2 days. me1 21:51 20:11 Chief complaint: Patient states: cough, congestion, sore throat, bilateral ear me1 pain, R jaw pain, fever, body aches for 2 days. me1
[2024-11-17 22:10] VITALS: O2SAT 98
[2024-11-17 22:12] VITALS: BP 132/68; TEMP 98.9
== END 2024-11-17 22:03 | disposition home or self-care (01) ==
LOC: ER 19:48
DX: R05.9 Cough, unspecified (principal); J02.9 Acute pharyngitis, unspecified; F17.210 Nicotine dependence, cigarettes, uncomplicated; Z11.52 Encounter for screening for COVID-19
CPT/HCPCS: 36415; 87070; 87428; 99283